=== PATIENT | female | born 1960 | race Caucasian/White ===

== ENCOUNTER → 2017-06-30 15:22 | Outpatient (CLI) | payer MEDICAID, SELFPAY ==
--- NOTE | 2017-06-30 15:27 | MRI_ITS ---
STUDY: MRI LEFT SHOULDER REASON FOR EXAM: Female, 57 years old. Left shoulder pain. Limited range of motion TECHNIQUE: Standardized fat and water weighted pulse sequences were obtained in all 3 orthogonal planes. COMPARISON: X-ray December 22, 2016 FINDINGS: There is supraspinatus tendinosis with tendon thickening, but without a demonstrated tendon tear. Normal infraspinatus tendon. Normal subscapularis tendon. Normal teres minor tendon. Normal supraspinatus muscle. Normal infraspinatus muscle. Normal subscapularis muscle. Normal teres minor muscle. Normal glenohumeral articulation. Normal humeral head and visualized proximal humerus. Normal biceps labral complex. Normal intracapsular long biceps tendon. Normal labrum. Normal capsulo- ligamentous complex. Normal rotator interval. 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 There is a Type II morphology (curved) acromion, with a neutral orientation. There is no subacromial-subdeltoid bursal fluid. Normal visualized coracohumeral and coracoacromial ligaments. Normal quadrilateral space. Normal axillary space. Normal deltoid muscle. Normal trapezius muscle. MRI/Upper Ext Joint Only(Routine) IMPRESSION: No rotator cuff tear. Acromioclavicular spurring with impingement. Electronically Signed: Prakash Galdamez MD at 20:30 EDT , Service support ,
== END ==
PROVIDERS: Family Provider Internal Medicine; PCP Internal Medicine
DX: M25.512 Pain in left shoulder (principal); M19.90 Unspecified osteoarthritis, unspecified site
CPT/HCPCS: 73221

== ENCOUNTER 2017-07-13 16:00 | Outpatient (RCR) | payer MEDICAID, SELFPAY ==
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
--- NOTE | 2017-09-16 15:41 | HP.PTDCNRP_ITS ---
HP - Discharge Summary (1) - Patient Information PAMELA RAMÍREZ was seen in my office for initial evaluation on 03/31/17. The following Plan of Care was established for this patient: Initial Frequency: 2x /Week Initial Duration: 4 Weeks - Anticipated Interventions Patient/Client Instruction: Educate patient on: Condition, Plan of Care For the Purpose of:: To decrease pain, To increase ROM, To improve ability to perform ADL's, To increase tolerance to activity/condition/position, To improve performance and independence with ADL's, To improve ability of physical actions for home/community/work/leisure, To improve gait and locomotor functions, To improve health of tissue, To decrease soft tissue restriction, To increase flexibility/ROM, To assume or resume ADL's, To improve ability to perform tasks related to life management, To improve tolerance to ADL's Therapeutic Exercise to Include: Strength training, Body mechanics, Postural training, Gait and locomotor training, In an aquatic setting, Dynamic Lumbar Stabilization For the Purpose of:: To decrease pain, To increase ROM, To improve muscle performance and motor function, To improve ability to perform ADL's, To increase tolerance to activity/condition/position, To improve performance and independence with ADL's, To improve ability of physical actions for home/ community/work/leisure, To improve health of tissue, To decrease soft tissue restriction, To increase flexibility/ROM, To assume or resume ADL's, To improve health and function, To improve ability to perform tasks related to life management, To improve tolerance to ADL's This patient was last seen in our office 07/29/17. Pertinent comments regarding their Physical therapy will appear below: Patient seen for PT for shoulder pain ,cervical and lumbar radiculopathy fot 14 visits with aquatic PT for lumbar/cervical ROM ,strengthening as well as land program cervical/lumbar. Patiento have MRI thus is d/c . At this point I will be discontinuing this patient from physical therapy. I would be happy to see this patient again in the future if found appropriate by the physician. Thank you! Will Archibald, PT,
== END 2017-07-13 19:00 | disposition home or self-care (01) ==
LOC: PT 16:00
PROVIDERS: Family Provider Internal Medicine; PCP Internal Medicine; Visit Provider Anesthesiology Pain Medicine
DX: M25.512 Pain in left shoulder (principal); M15.9 Polyosteoarthritis, unspecified; M46.92 Unspecified inflammatory spondylopathy, cervical region; M50.30 Other cervical disc degeneration, unspecified cervical region; M54.16 Radiculopathy, lumbar region; M51.36 Other intervertebral disc degeneration, lumbar region; G89.4 Chronic pain syndrome
CPT/HCPCS: 97110; 97113; 97162; 97530

== ENCOUNTER → 2017-10-03 16:19 | Outpatient (CLI) | payer MEDICAID, SELFPAY | PROVIDERS: Family Provider Internal Medicine; PCP Internal Medicine; Visit Provider Nurse Practitioner Family | DX: Z12.31 Encounter for screening mammogram for malignant neoplasm of breast (principal) | CPT/HCPCS: 77063; 77067 ==

== ENCOUNTER → 2017-10-24 13:02 | Outpatient (CLI) | payer MEDICAID, SELFPAY ==
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
== END ==
PROVIDERS: Family Provider Internal Medicine; PCP Internal Medicine
DX: M54.2 Cervicalgia (principal); M54.16 Radiculopathy, lumbar region; M25.511 Pain in right shoulder
CPT/HCPCS: 72050; 72110; 73030

== ENCOUNTER → 2017-11-23 08:59 | Outpatient (CLI) | payer MEDICAID, SELFPAY ==
[2017-11-23 10:32] LABS: Absolute Lymphocyte Count 2.77 X10^3/ul (0.83-4.51); Absolute Neutrophil Count 4.3 X10^3/uL (2.0-7.7); Basophil# 0.03 X10^3/uL; Basophil% 0.4 % (0-1); Eosinophils% 1.3 % (0-5); Hematocrit 43.3 % (37-47); Hemoglobin 14.6 g/dl (12.0-15.0); Lymphocyte # 2.77 X10^3/ul (4.0); Lymphocyte % 36.5 % (19-41); Mean Corp Hgb Conc 33.7 g/gl (32-36); Mean Corpuscular Hgb 31.3 pg (27.0-32.0); Mean Corpuscular Volume 92.7 fL (81-99); Mean Platelet Vol. 12.2 fl (6.2-12.0); Monocyte# 0.37 X10^3/uL; Monocyte% 4.9 % (0-10); Neutrophil # 4.31 X10^3/uL (2.7-7.7); Neutrophil % 56.8 % (47-70); Platelet Count 187 K/mm3 (150-450); RBC Distribution Width CV 13.2 % (11.6-14.6); RBC Distribution Width SD 43.9 fl (35.1-43.9); Red Blood Count 4.67 M/mm3 (4.2-5.4); White Blood Count 7.6 K/mm3 (4.4-11.0)
[2017-11-23 10:40] LABS: POSITIVE COUNT NO; POSITIVE DIFFERENTIAL NO; POSITIVE MORPHOLOGY NO
[2017-11-23 10:50] LABS: ALB/GLOB Ratio 0.8 RATIO (0.9-2.4); AST(SGOT) 14 U/L (15-37); Alanine Aminotransfer ALT/SGPT 26 U/L (13-56); Albumin, Serum 3.2 g/dL (3.2-5.0); Alkaline Phosphatase 71 U/L (45-117); Anion Gap 9 (5-15); BUN 16 mg/dL (7-18); BUN/Creat Ratio 25.5 RATIO (10-20); Calcium,Total 8.4 mg/dL (8.5-10.1); Chloride 106 mmol/L (98-107); Cholesterol 161 mg/dL (200); Creatinine, Serum 0.63 mg/dL (0.55-1.02); EST Glomerular Filtration Rate 104 mL/min (>60); Est Glom Filt Rate - Afr Amer 126 mL/min (>60); Globulin 4.1 g/dL (2.2-4.2); Glucose 101 mg/dL (74-106); High Density Lipoprotein 50 mg/dL; Potassium 3.7 mmol/L (3.5-5.1); Protein, Total 7.3 g/dL (6.4-8.2); Sodium Level 140 mmol/L (136-145); Thyroid Stim Hormone (TSH) 2.86 uIU/mL (0.358-3.74); Triglycerides 72 mg/dL; Very Low Density Lipoprotein 14 mg/dL (5-40)
== END ==
PROVIDERS: Family Provider Internal Medicine; PCP Internal Medicine; Referring Provider Nurse Practitioner Family; Visit Provider Nurse Practitioner Family
DX: I10 Essential (primary) hypertension (principal); E66.9 Obesity, unspecified
CPT/HCPCS: 36415; 80053; 80061; 84443; 85025

== ENCOUNTER → 2017-12-26 15:58 | Outpatient (CLI) | payer MEDICAID, SELFPAY ==
--- NOTE | 2017-12-26 16:15 | MRI_ITS ---
STUDY: MRI LUMBAR SPINE WITHOUT CONTRAST REASON FOR EXAM: Female, 57 years old. Low back pain radiating to left leg TECHNIQUE: Standardized fat and water weighted pulse sequences were obtained in the sagittal and axial planes. COMPARISON: September 01, 2016 FINDINGS: T12-L1: Normal endplates. Normal disc height, hydration and morphology. Normal bilateral facet joints. Normal central canal and bilateral lateral recesses. Normal bilateral intervertebral neural foramina. Normal lumbar lordosis. There is no substantial scoliosis. Normal conus medullaris that terminates at T12-L1 L1-2: Normal endplates. Normal disc height, desiccation and minimal annular bulge.. Normal bilateral facet joints. Normal central canal and bilateral lateral recesses. Normal bilateral intervertebral neural foramina. L2-3: Normal endplates. Normal disc height, desiccation and minimal annular bulge.. Normal bilateral facet joints. Normal central canal and bilateral lateral recesses. Normal bilateral intervertebral neural foramina. L3-4: Normal endplates. Normal disc height, desiccation and small broad-based central disc protrusion.. Bilateral facet arthropathy.. Normal central canal and bilateral lateral recesses. Normal bilateral intervertebral neural foramina. L4-5: Normal endplates. Normal disc height, hydration and minimal annular bulge. Bilateral facet arthropathy. Normal central canal and bilateral lateral recesses. Mild bilateral neural foraminal encroachment.. L5-S1: Normal endplates. Normal disc height, desiccation and minimal annular bulge with small left paracentral disc protrusion impinging upon the descending S1 nerve root.. Bilateral facet arthropathy. Normal central canal. Mild left lateral recess encroachment. Normal bilateral intervertebral neural foramina. Normal visualized sacral ala. Normal visualized paraspinous soft tissue structures. The disc protrusion at L5-S1 appears to have decreased slightly in size since prior study MRI/Spine Lumbar (Routine) IMPRESSION: Small broad-based central disc protrusion L3-4 without significant spinal stenosis Mild spinal stenosis at L4-5 secondary to minimal annular bulge and facet arthropathy. Small left paracentral disc protrusion at L5-S1 impinging upon the descending left S1 nerve root Electronically Signed: Stef Phelps MD at 19:20 EST , Service support ,
--- NOTE | 2017-12-26 16:15 | MRI_ITS ---
STUDY: MRI CERVICAL SPINE WITHOUT CONTRAST REASON FOR EXAM: Female, 57 years old. Neck pain radiating to both arms TECHNIQUE: Standardized fat and water weighted pulse sequences were obtained in the sagittal and axial planes. COMPARISON: None FINDINGS: Normal foramen magnum and brainstem-cervical cord junction. Normal craniovertebral junction. Normal anterior atlantoaxial articulation. Normal odontoid process. Normal cervical lordosis. Normal vertebral bodies and posterior osseous elements. C2-3: Normal endplates. Normal disc height, signal and morphology. Normal central canal and intervertebral neural foramina. C3-4: Normal endplates. Normal disc height, signal and morphology. Normal central canal and intervertebral neural foramina. C4-5: Normal endplates. Normal disc height, signal and minor bulging disc/osteophyte complex.. Normal central canal. Mild bilateral neural foraminal encroachment secondary to bony hypertrophy C5-6: Normal endplates. Normal disc height, signal and tiny central disc protrusion.. Normal central canal and intervertebral neural foramina. C6-7: Normal endplates. Normal disc height, signal and tiny central disc protrusion. Normal central canal and intervertebral neural foramina. C7-T1: Normal endplates. Normal disc height, signal and morphology. Normal central canal and intervertebral neural foramina. Normal cervical cord. Normal visualized soft tissue structures. MRI/Spine Cervical (Routine) IMPRESSION: Mild spinal stenosis at C4-5 secondary to mild bulging disc osteophyte complex Tiny central disc protrusion at C5-6 and C6-7 without spinal stenosis Electronically Signed: Stef Phelps MD at 18:54 EST , Service support ,
== END ==
PROVIDERS: Family Provider Internal Medicine; PCP Internal Medicine; Referring Provider Anesthesiology Pain Medicine; Visit Provider Anesthesiology Pain Medicine
DX: M54.2 Cervicalgia (principal); M54.9 Dorsalgia, unspecified
CPT/HCPCS: 72141; 72148

== ENCOUNTER 2018-02-03 21:36 | Emergency (ER) | payer MEDICAID, SELFPAY ==
[2018-02-03 21:37] VITALS: BP 135/105; PULSE 116; RESP 18; TEMP 36.3; O2SAT 98; BMI 40.7
--- NOTE | 2018-02-03 22:00 | ED.VISSUMM ---
- ER Visit Summary Date of Service: 02/03/18 Chief Complaint: Dental pain History of Present Illness: The patient is a 57 F who had all of her teeth extracted in mid December. She went back to the dentist on the and had some bone fragments pulled. Patient now states it feels that her gums are getting more swollen and getting infected. She tried to call her dentist multiple times a day but never received a return call. Patient is on Butrans chronically from pain management. She has an allergy to penicillin. Physical Examination: Vital signs significant for heart rate 116, otherwise unremarkable. Patient sitting upright in bed. She is alert and talkative. She is nontoxic appearing. Head neck examination was TMs to be clear bilaterally. No facial edema or erythema is noted. Intraoral examination reveals gums to be swollen diffusely with areas of fibrous tissue scattered. Posterior pharynx exam is normal. There is no sign of Fish's. Heart is regular rate and rhythm. Lung sounds are clear. Test Results: [] Emergency Department Course and Treatment: I did explain to the patient that with her being on Butrans her pain receptors a block with this medication and giving her additional opiates is not going to be beneficial. We will treat her with clindamycin to help control infection which should help control her pain. First dose will be given tonight. Treatment Plan: [] Disposition: Discharge Impression: Odontalgia This note was generated with [employer] dictation software. It may contain incorrect words, spelling, and punctuation that were not noted in review of the chart prior to signing ED Disposition - Plan for ED Patient: Chief Complaint: Dental Referrals: Soheila Cassidy MD [Primary Care Provider] -
--- NOTE | 2018-02-03 22:02 | ED.DEP ---
ED Disposition - Plan for ED Patient: Disposition: Home or Assisted Living Chief Complaint: Dental Instructions: ED Abscess Dental Prescriptions: Clindamycin [Cleocin] 300 mg PO 4X/DAY #80 capsule Referrals: Soheila Cassidy MD [Primary Care Provider] - Additional Instructions: Follow-up with your dentist on Tuesday.
[2018-02-03] MEDS: Clindamycin HCl 150 MG Capsule 300 MG PO (23:04)
[2018-02-03 23:13] VITALS: PULSE 110; RESP 16; O2SAT 97
== END 2018-02-03 23:14 | disposition home or self-care (01) ==
LOC: ED 22:35
PROVIDERS: Emergency Provider Emergency Medicine; Family Provider Internal Medicine; PCP Internal Medicine
DX: K08.89 Other specified disorders of teeth and supporting structures (principal); Z88.0 Allergy status to penicillin; Z98.818 Other dental procedure status; I10 Essential (primary) hypertension; Z72.0 Tobacco use
CPT/HCPCS: 99282

== ENCOUNTER → 2018-06-13 11:50 | Outpatient (CLI) | payer MEDICAID, SELFPAY ==
[2018-06-09 13:01] VITALS: BMI 42.4
--- NOTE | 2018-06-13 11:53 | EKG12_ITS ---
Test Reason : ROUTINE Blood Pressure : / mmHG Vent. Rate : 078 BPM Atrial Rate : 078 BPM P-R Int : 152 ms QRS Dur : 082 ms QT Int : 402 ms P-R-T Axes : 059 012 009 degrees QTc Int : 458 ms Normal sinus rhythm Normal ECG Confirmed by MIO HUFFMAN, YOSI ([id number]), editor farm journal JENNIFER DOYLE ([id number]) on 06/15/2018 9:01:16 AM Referred By: Jarek Soriano Confirmed By:YOSI LIEBERMAN MD
== END ==
PROVIDERS: Family Provider Internal Medicine; PCP Internal Medicine; Referring Provider Nurse Practitioner Family; Visit Provider Nurse Practitioner Family
DX: R07.9 Chest pain, unspecified (principal)
CPT/HCPCS: 93005

== ENCOUNTER → 2018-06-27 12:46 | Outpatient (CLI) | payer MEDICAID, SELFPAY ==
[2018-06-27 12:41] VITALS: BMI 42.4
--- NOTE | 2018-06-27 12:48 | RAD_ITS ---
STUDY: X-RAY - LUMBAR SPINE REASON FOR EXAM: Female, 58 years old. Low back pain TECHNIQUE: 4 view(s) of the lumbar spine were obtained. COMPARISON: 10/24/2017 FINDINGS: Normal lumbar lordosis. There is no substantial scoliosis. There is a normal alignment of the vertebrae. Normal vertebral bodies and endplates. There is multi-level degenerative disc disease with multi-level disc space narrowing. There is no demonstrated fracture. No evidence of instability on the flexion or extension views The soft tissue structures are unremarkable. RAD/L/S Spine Min 4 Views IMPRESSION: Mild degenerative changes, no acute findings Electronically Signed: Dillon Fletcher MD at 14:59 EDT , Service support ,
== END ==
PROVIDERS: Family Provider Internal Medicine; PCP Internal Medicine; Referring Provider Orthopaedic Surgery; Visit Provider Orthopaedic Surgery
DX: M54.5 Low back pain (principal)
CPT/HCPCS: 72110

== ENCOUNTER → 2018-10-05 14:33 | Outpatient (CLI) | payer MEDICAID, SELFPAY ==
[2018-07-14 13:05] VITALS: BMI 42.4
--- NOTE | 2018-10-05 14:37 | BI_ITS ---
MAMMOGRAPHY - BILATERAL SCREENING 3-D TOMOSYNTHESIS REASON FOR EXAM: Female, 58 years old. Bilateral Screening 3-D tomosynthesis PERTINENT HISTORY: No significant family history. TECHNIQUE: 2-D mammograms and 3-D Tomosynthesis of the breast (s) were performed. CAD was performed. COMPARISON: 10/03/2017 FINDINGS: The breast composition is composed of scattered fibroglandular density. Unremarkable bilateral breast parenchyma. No dense spiculated masses or suspicious microcalcifications are identified. No architectural distortion is identified. There is no skin thickening or retraction. There has been no significant change since the prior study. BI/SCREEN MAMM (CAD) W/MAGDALENA BILAT IMPRESSION: No mammographic signs of malignancy. Routine yearly mammograms recommended. ASSESSMENT CATEGORY: BIRADS Category 1: Negative. A letter regarding these results will be sent to the patient by the facility within 30 days. FOLLOW UP RECOMMENDATION: Yearly follow up mammogram recommended. (A) Approximately 10% of breast cancers are not detected by mammography. A normal mammogram should not delay biopsy of a clinically suspicious abnormality. Electronically Signed: Vincent Mckeon MD at 16:29 EDT Tel [phone], Service support ,
== END ==
PROVIDERS: Family Provider Internal Medicine; PCP Internal Medicine; Referring Provider Nurse Practitioner Family; Visit Provider Nurse Practitioner Family
DX: Z12.31 Encounter for screening mammogram for malignant neoplasm of breast (principal)
CPT/HCPCS: 77063; 77067

== ENCOUNTER → 2018-11-24 10:51 | Outpatient (CLI) | payer MEDICAID, SELFPAY ==
[2018-11-17 14:00] VITALS: BMI 42.4
[2018-11-24 12:40] LABS: Hematocrit 43.3 % (37-47); Hemoglobin 14.3 g/dL (12.0-15.0); Mean Corpuscular Hgb 30.2 pg (27.0-32.0); Mean Corpuscular Volume 91.5 fL (81-99); Mean Platelet Vol. 11.9 fl (6.2-12.0); Platelet Count 199 K/mm3 (150-450); RBC Distribution Width CV 13.1 % (11.6-14.6); RBC Distribution Width SD 44.7 fl (35.1-43.9); Red Blood Count 4.73 M/mm3 (4.2-5.4); White Blood Count 6.4 K/mm3 (4.4-11.0)
[2018-11-24 13:06] LABS: ALB/GLOB Ratio 0.9 RATIO (0.9-2.4); AST(SGOT) 15 U/L (15-37); Alanine Aminotransfer ALT/SGPT 27 U/L (13-56); Albumin, Serum 3.4 g/dL (3.2-5.0); Alkaline Phosphatase 76 U/L (45-117); Anion Gap 8 (5-15); BUN 16 mg/dL (7-18); BUN/Creat Ratio 28.1 RATIO (10-20); Calcium,Total 8.4 mg/dL (8.5-10.1); Chloride 111 mmol/L (98-107); Cholesterol 167 mg/dL (200); Creatinine, Serum 0.57 mg/dL (0.55-1.02); EST Glomerular Filtration Rate 116 mL/min (>60); Est Glom Filt Rate - Afr Amer 141 mL/min (>60); Globulin 3.8 g/dL (2.2-4.2); Glucose 106 mg/dL (74-106); High Density Lipoprotein 44 mg/dL; Potassium 3.9 mmol/L (3.5-5.1); Protein, Total 7.2 g/dL (6.4-8.2); Sodium Level 145 mmol/L (136-145); Thyroid Stim Hormone (TSH) 2.04 uIU/mL (0.358-3.74); Triglycerides 86 mg/dL; Very Low Density Lipoprotein 17 mg/dL (5-40)
== END ==
PROVIDERS: Family Provider Internal Medicine; PCP Internal Medicine; Visit Provider Nurse Practitioner Family
DX: I10 Essential (primary) hypertension (principal); F32.9 Major depressive disorder, single episode, unspecified; E66.9 Obesity, unspecified
CPT/HCPCS: 36415; 80053; 80061; 84443; 85027

== ENCOUNTER 2019-02-04 21:25 | Emergency (ER) | payer MEDICAID, SELFPAY ==
[2019-01-17 10:42] VITALS: BMI 42.4
[2019-02-04 21:26] VITALS: BP 179/109; PULSE 95; RESP 15; TEMP 36.9; O2SAT 99; BMI 44.5
[2019-02-04 21:45] VITALS: BP 160/83
--- NOTE | 2019-02-04 22:43 | ED.DCSUM_ITS ---
History of Present Illness Chief Complaint: Hypertension Informant: Patient Onset: Hours - 5 Context: Gradual Onset Timing: Continuous Quality: burning Location: top of head Current Severity: Moderate Maximum Severity: Moderate Worsened by: nothing Relieved by: nothing Associated Symptoms: malaise. URI sx x 1 week. 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 She is nauseated now. She denies any focal neurologic symptoms or vision changes or confusion or neck stiffness. She started having diarrhea just now upon arrival to the ER, she had one bout of loose watery nonbloody stool. She has had some occasional minor bleeding from her nose when she blows it only. She denies any dyspnea. No history of heart or lung disease. She has been compliant with her blood pressure medication, she checked it at home earlier when she started feeling the burning on top of her head which she has had before with high blood pressure, her blood pressure was in the 170s at home so she took another dose of her pressure medications, losartan and amlodipine. States she does not really feel any better now. Lightheaded when sitting up and standing, better when lying down. No palpitations or near syncope/syncope. - Past Medical History (1) Arthritis Status: Chronic (2) Chronic back pain Status: Chronic (3) Chronic pain in right foot Status: Chronic (4) Degenerative disc disease, cervical Status: Chronic (5) Depression Status: Chronic (6) Hypertension Status: Chronic (7) Obesity Status: Chronic (8) Osteoarthritis involving joint of left upper arm Status: Chronic (9) Tobacco abuse Status: Chronic Past Medical History - Allergies and Home Meds Allergies/Adverse Reactions: Allergies Penicillins Allergy (Verified 02/04/19 21:28) Anaphylaxis Primary Care Physician: Soheila Cassidy MD [Primary Care Provider] - Lives: Spouse/ Significant Other Smoking Status: Current every day smoker Review of Systems General: Reports: Fever, Malaise, Subjective. Denies: Chills, Sweats Eyes: Denies: Visual changes - bilaterally, Diplopia ENT: Reports: Rhinorrhea. Denies: Bilateral ear pain, Sore throat Cardiovascular: Denies: Chest pain, Palpitations Respiratory: Reports: Cough, Sputum - Occasional phlegm, no hemoptysis. Denies: Dyspnea, Dyspnea on exertion, Orthopnea Gastrointestinal: Reports: Nausea, Vomiting, Diarrhea. Denies: Abdominal pain, Melena, Hematochezia Genitourinary: Denies: Dysuria, Hematuria, Frequency Musculoskeletal: Reports: Back pain - Chronic, unchanged. Denies: Swelling, Extremity Pain Skin: Denies: Rash, Wounds Neurological: Reports: Headache. Denies: Weakness, Numbness Physical Exam Vital Signs/Narrative: Vital Signs Temp Pulse Resp BP Pulse Ox 02/04/19 21:45 160/83 H 02/04/19 21:26 98.5 F 95 15 179/109 H 99 Inital Vital Signs reviewed: Yes General: Well nourished, Well developed, Obese, No Acute Distress Head: Normocephalic, Atraumatic Eyes: Perrl, EOMI ENT: Moist mucous membranes, No rhinorrhea, TM's clear, - - Edentulous. Posterior oropharynx is clear and without erythema or tonsillar edema/exudate/asymmetry. No trismus. no sinus tenderness or purulent nasal discharge. Neck: Supple, Nontender, No lymphadenopathy, No JVD Cardiovascular: Regular rate, Regular rhythm, No murmurs Respiratory: No distress, Chest nontender, Wheezing - Occasional inspiratory wheeze, mild, bilateral. Negative for: Rales, Rhonchi Abdomen: Soft, Nontender, Nondistended, Normal bowel sounds Back: Nontender, Normal Inspection Extremities: Nontender, No edema. Negative for: Calf Tenderness Skin: Normal color, No rash, No Trauma Neurological: Alert, Oriented x3, Cranial nerves II-XII grossly intact, Normal Strength, Normal Sensation, Normal Gait Psychological: Normal affect, Normal Mood Diagnostic/Tx/Re-eval Impressions Chest X-Ray 02/04/19 23:10 IMPRESSION: Minor atelectasis or scarring in the left base, nonspecific thickening of the minor fissure. No pulmonary edema, congestive heart failure or confluent pneumonia. Electronically Signed: Candace Lehman MD at 23:25 EST , Service support , Brain CT 02/05/19 00:32 IMPRESSION: Mild chronic sinus disease. There is no acute intracranial pathology. Electronically Signed: Candace Lehman MD at 1:17 EST , Service support , 02/04/19 23:10 Chest PA and Lateral [RAD] Stat 02/05/19 00:32 Brain/Head without Contrast [CT] Stat - Medical Decision Making Patient was initially given clonidine, her pressure did not change very much, staying in the 160s, and she said she did not feel any better. She then started vomiting and stated that her headache felt worse. Therefore I sent her for CT head, and showed no acute abnormalities but findings of chronic sinusitis. No signs of any mastoiditis or anything else acute. It is certainly possible that this is a early acute ethmoid sinusitis given her acute URI illness. This could be resulting in her headaches as well. I gave her Toradol and Reglan and she felt better, so certainly is possible that it could be a vascular headache. I think it would be reasonable to try her on broad-spectrum antibiotics to cover her for the possibility of an acute sinus infection. We discussed at length the fact that she could still have a viral etiology of her cold that may not respond to antibiotics. She was prescribed azithromycin as well as Phenergan to use as needed and advised to follow-up with her doctor. Blood pressure is down to the 150s. I am suspicious that this is not the reason for her headache. ED Disposition - Plan for ED Patient: Disposition: Home or Assisted Living Diagnosis: Viral URI with cough, Vomiting and diarrhea, Cephalgia, Sinusitis, Accelerated hypertension Instructions: HYPERTENSION, Established, Out of Control, SINUSITIS, Abx Tx Prescriptions: proMETHazine tablet [Phenergan] 25 mg PO Q6H PRN PRN #10 tab PRN Reason: Nausea Transmission Status: Pending to [facility] Azithromycin [Zithromax Z-Sadiq] 250 mg PO UD #1 box Transmission Status: Pending to [facility] Referrals: Soheila Cassidy MD [Primary Care Provider] - 1 Week if not improving
[2019-02-04] MEDS: Albuterol 2.5 MG/3 ML VIAL.NEB. INHALATION (22:50)
[2019-02-04 22:52] VITALS: PULSE 98; RESP 18
[2019-02-04] MEDS: cloNIDine HCl 0.1 MG Tablet PO (22:59)
[2019-02-04] MEDS: Ondansetron ODT 4 MG Tablet 8 MG PO (23:00)
--- NOTE | 2019-02-04 23:10 | RAD_ITS ---
STUDY: X-RAY CHEST REASON FOR EXAM: Female, 58 years old. ELEVATED BP. TECHNIQUE: PA and lateral views of the chest. COMPARISON: None. FINDINGS: Left basilar linear changes possible atelectasis versus scarring. Mild thickening of the minor fissure. Normal size heart. Normal mediastinum and lamin. Normal visualized pulmonary arteries. Normal visualized aortic arch and descending thoracic aorta. Age-appropriate thoracic spine. There are degenerative changes of the acromioclavicular joints. There is no demonstrated abnormality of the visualized soft tissue structures of the upper abdomen. RAD/Chest PA and Lateral IMPRESSION: Minor atelectasis or scarring in the left base, nonspecific thickening of the minor fissure. No pulmonary edema, congestive heart failure or confluent pneumonia. Electronically Signed: Candace Lehman MD at 23:25 EST , Service support ,
[2019-02-05 00:04] VITALS: BP 168/86
--- NOTE | 2019-02-05 00:32 | CT_ITS ---
STUDY: CT BRAIN WITHOUT CONTRAST REASON FOR EXAM: Female, 58 years old. HEADACHE WITH ELEVATED BP AND NAUSEA -- HX:DIABETES,HTN RADIATION DOSAGE (If Supplied By Facility): CTDIvol = ( 44.99 ) mGy, DLP = ( 796.11 ) mGycm TECHNIQUE: Transaxial CT imaging of the brain was performed without administration of intravenous contrast material. Individualized dose optimization techniques were used for this CT. COMPARISON: No relevant priors. FINDINGS: Normal soft tissue structures. Normal calvarium. Normal size ventricles and extra-axial spaces for the patient''s age. Normal white matter tracts of the cerebral hemispheres. Normal basal ganglia and thalami. Normal brainstem. Normal cerebellum. There is no intracranial hemorrhage. There are no findings of an acute ischemic infarction. There is mucoperiosteal inflammatory disease of the bilateral maxillary and ethmoid sinuses consistent with mild chronic sinusitis. The bilateral mastoid air cells and ossicles are unopacified. CT/Brain/Head without Contrast IMPRESSION: Mild chronic sinus disease. There is no acute intracranial pathology. Electronically Signed: Candace Lehman MD at 1:17 EST , Service support ,
[2019-02-05] MEDS: Metoclopramide 10 MG/2 ML Vial 5 MG IV (01:01)
[2019-02-05] MEDS: Ketorolac 15 MG/ML Vial IV (01:02)
[2019-02-05 01:09] VITALS: BP 153/72; PULSE 87; RESP 16
[2019-02-05 01:50] VITALS: BP 141/64; PULSE 81; RESP 16
== END 2019-02-05 01:50 | disposition home or self-care (01) ==
PROVIDERS: Emergency Provider Emergency Medicine; Family Provider Internal Medicine; PCP Internal Medicine
DX: J06.9 Acute upper respiratory infection, unspecified (principal); J32.9 Chronic sinusitis, unspecified; I10 Essential (primary) hypertension; E11.9 Type 2 diabetes mellitus without complications; E66.9 Obesity, unspecified; F17.200 Nicotine dependence, unspecified, uncomplicated; F32.9 Major depressive disorder, single episode, unspecified; G89.29 Other chronic pain; M19.90 Unspecified osteoarthritis, unspecified site; Z88.0 Allergy status to penicillin; R11.2 Nausea with vomiting, unspecified; R19.7 Diarrhea, unspecified; R05 Cough
CPT/HCPCS: 70450; 71046; 94640; 96374; 96375; 99283; J7040; A4216

== ENCOUNTER → 2019-02-19 10:54 | Outpatient (CLI) | payer MEDICAID, SELFPAY ==
[2018-11-17 14:00] VITALS: BMI 42.4
[2019-02-06 12:03] VITALS: BMI 44.5
--- NOTE | 2019-02-19 15:41 | STRESSREP ---
Stress Test Report Exercise stress test. 58-year-old lady with a history of chest pain. Medications: Amlodipine, losartan. Stress testing Rest EKG demonstrates normal sinus rhythm with a rate of 83 beats minute normal intervals are noted resting blood pressures 138/70 mmHg. Patient exercised according to regular Chu protocol for total duration of 4 minutes and 30 seconds maximum heart rate attained was 150 bpm which was 91% of maximum active heart rate the maximum workload was 6.4 metabolic equivalents. The patient maintained sinus rhythm throughout the recording. At rest there were no ST or T wave changes noted suggest ischemia peak exercise upsloping ST changes only were noted with no meet the criteria for ischemia. No clinical angina was noted. The resting blood pressure is 138/70 with a peak blood pressure 160/70 mmHg. Conclusion: Exercise stress test with no EKG criteria for ischemia at a low to moderate workload. No clinical angina noted.
== END ==
PROVIDERS: Family Provider Internal Medicine; PCP Internal Medicine; Referring Provider Nurse Practitioner Family; Visit Provider Nurse Practitioner Family
DX: R07.9 Chest pain, unspecified (principal)
CPT/HCPCS: 93017

== ENCOUNTER → 2019-03-05 15:29 | Outpatient (CLI) | payer MEDICAID, SELFPAY ==
[2019-02-06 12:03] VITALS: BMI 44.5
--- NOTE | 2019-03-05 15:40 | RAD_ITS ---
HISTORY: cervical radiculopathy, pain mainly in left shoulder/neck EXAMINATION/TECHNIQUE: XR Spine Cervical 6 Views: COMPARISON: Cervical spine MRI 12/26/2017 FINDINGS: The cervical vertebra show normal height and alignment. No fracture or acute osseous abnormality. No suspicious bony lesion. C4-C5 mild disc space narrowing accompanied by endplate spurring both anteriorly and posteriorly. The posterior elements appear intact. No spondylolisthesis. Neuroforamina are patent. Normal C1-C2 relationship. RAD/Cerv Spine 4 or 5 Views IMPRESSION: 1. Stable findings. C4-C5 degenerative disc disease and spondylosis. 2. Otherwise negative exam. at 0819 Reported and signed by: Reid Gordon MD Electronically Signed: Reid Gordon, at 8:18 EST Tel , Service support ,
== END ==
PROVIDERS: PCP Internal Medicine; Referring Provider Nurse Practitioner Family; Visit Provider Nurse Practitioner Family
DX: M48.9 Spondylopathy, unspecified (principal); M54.12 Radiculopathy, cervical region; M47.812 Spondylosis without myelopathy or radiculopathy, cervical region; M48.02 Spinal stenosis, cervical region
CPT/HCPCS: 72050

== ENCOUNTER → 2019-03-19 16:57 | Outpatient (CLI) | payer MEDICAID, SELFPAY ==
[2019-03-19 14:41] VITALS: BMI 44.5
[2019-03-22 20:51] LABS: HPV APTIMA, High Risk Negative (Negative)
== END ==
PROVIDERS: PCP Internal Medicine; Referring Provider Nurse Practitioner Women's Health; Visit Provider Nurse Practitioner Women's Health
DX: Z12.4 Encounter for screening for malignant neoplasm of cervix (principal)
CPT/HCPCS: 87624; 88175; G0145

== ENCOUNTER → 2019-05-02 13:02 | Outpatient (CLI) | payer MEDICAID, SELFPAY ==
[2019-04-19 09:46] VITALS: BMI 44.5
[2019-05-02 15:54] LABS: Anion Gap 6 (5-15); BUN 24 mg/dL (7-18); BUN/Creat Ratio 37.1 RATIO (10-20); Calcium,Total 9.2 mg/dL (8.5-10.1); Chloride 108 mmol/L (98-107); Creatinine, Serum 0.65 mg/dL (0.55-1.02); EST Glomerular Filtration Rate 100 mL/min (>60); Est Glom Filt Rate - Afr Amer 121 mL/min (>60); Glucose 108 mg/dL (74-106); Potassium 3.8 mmol/L (3.5-5.1); Sodium Level 140 mmol/L (136-145)
== END ==
PROVIDERS: PCP Internal Medicine; Referring Provider Internal Medicine; Visit Provider Internal Medicine
DX: I10 Essential (primary) hypertension (principal)
CPT/HCPCS: 36415; 80048

== ENCOUNTER → 2019-08-31 13:06 | Outpatient (CLI) | payer MEDICAID, SELFPAY ==
[2019-07-20 13:50] VITALS: BMI 44.5
--- NOTE | 2019-08-31 13:12 | RAD_ITS ---
STUDY: X-RAY - LEFT SHOULDER REASON FOR EXAM: Female, 59 years old. SHOULDER PAIN AND UNABLE TO ABDUCT ARM x8 MONTHS, NKI TECHNIQUE: 4 view(s) of the shoulder. COMPARISON: None. FINDINGS: Normal glenohumeral articulation. There is hypertrophic osteoarthrosis of the acromioclavicular joint with inferior osseous spur formation. Normal acromion. Normal humeral head and visualized proximal humerus. The soft tissue structures are unremarkable. There is no demonstrated fracture. Normal visualized pulmonary apex. RAD/Shoulder min 2 Views IMPRESSION: No acute fracture or dislocation. Degenerative changes of the AC joint. Electronically Signed: Yusuf Simmons MD at 17:35 EDT , Service support ,
== END ==
PROVIDERS: PCP Internal Medicine; Referring Provider Nurse Practitioner Family; Visit Provider Nurse Practitioner Family
DX: M25.519 Pain in unspecified shoulder (principal)
CPT/HCPCS: 73030

== ENCOUNTER → 2019-11-12 15:30 | Outpatient (CLI) | payer MEDICAID, SELFPAY ==
[2019-07-20 13:50] VITALS: BMI 44.5
--- NOTE | 2019-11-12 15:40 | BI_ITS ---
MAMMOGRAPHY - BILATERAL SCREENING REASON FOR EXAM: Female, 59 years old. Routine annual screening examination. PERTINENT HISTORY: Non-contributory. TECHNIQUE: Digital bilateral breast magdalena (3D mammographic acquisition) in the CC and MLO projections. 2-D mediolateral oblique (MLO) and craniocaudad (CC) views of both breasts were obtained. CAD: Full Field Digital Mammography with Computer Added Detection was performed. COMPARISON: Comparison is made with prior study dated 10/05/2018 and 10/03/2017. FINDINGS: Breast Composition: The breasts are almost entirely fatty. There are no dominant masses or suspicious calcifications. No other significant abnormalities are identified. There has been no significant change since the prior study. BI/SCREEN MAMM (CAD) W/MAGDALENA BILAT IMPRESSION: Stable bilateral screening mammogram. Yearly follow-up mammogram recommended. (A) ASSESSMENT CATEGORY: BIRADS Category 1: Negative. A letter regarding these results will be sent to the patient by the facility within 30 days. Approximately 10% of breast cancers are not detected by mammography. A normal mammogram should not delay biopsy of a clinically suspicious abnormality. [id number] Electronically Signed: Hiram Rahman, at 8:29 EDT , Service support ,
== END ==
PROVIDERS: PCP Internal Medicine; Referring Provider Internal Medicine; Visit Provider Internal Medicine
DX: Z12.31 Encounter for screening mammogram for malignant neoplasm of breast (principal)
CPT/HCPCS: 77063; 77067

== ENCOUNTER → 2019-12-20 14:59 | Outpatient (CLI) | payer MEDICAID, SELFPAY ==
[2019-12-20 14:35] VITALS: BMI 45.2
[2019-12-20 17:46] LABS: ALB/GLOB Ratio 0.8 RATIO (0.9-2.4); AST(SGOT) 26 U/L (15-37); Alanine Aminotransfer ALT/SGPT 43 U/L (13-56); Albumin, Serum 3.5 g/dL (3.2-5.0); Alkaline Phosphatase 105 U/L (45-117); Anion Gap 6 (5-15); BUN 13 mg/dL (7-18); BUN/Creat Ratio 17.1 RATIO (10-20); Chloride 105 mmol/L (98-107); Cholesterol 164 mg/dL (200); Creatinine, Serum 0.76 mg/dL (0.55-1.02); EST Glomerular Filtration Rate 83 mL/min (>60); Est Glom Filt Rate - Afr Amer 101 mL/min (>60); Globulin 4.5 g/dL (2.2-4.2); Glucose 171 mg/dL (74-106); High Density Lipoprotein 49 mg/dL; Potassium 3.5 mmol/L (3.5-5.1); Sodium Level 140 mmol/L (136-145); Triglycerides 119 mg/dL; Very Low Density Lipoprotein 24 mg/dL (5-40)
== END ==
PROVIDERS: PCP Internal Medicine; Referring Provider Internal Medicine; Visit Provider Internal Medicine
DX: I10 Essential (primary) hypertension (principal); R73.9 Hyperglycemia, unspecified
CPT/HCPCS: 36415; 80053; 80061; 83036

== ENCOUNTER 2020-01-09 13:55 | Outpatient (RCR) | payer MEDICAID, SELFPAY ==
[2019-12-20 14:35] VITALS: BMI 45.2
== END 2020-01-14 23:59 ==
LOC: NS 13:55
PROVIDERS: PCP Internal Medicine; Visit Provider Internal Medicine
DX: Z71.3 Dietary counseling and surveillance (principal); E66.01 Morbid (severe) obesity due to excess calories
CPT/HCPCS: 97802

== ENCOUNTER → 2020-01-09 15:14 | Outpatient (CLI) | payer MEDICAID, SELFPAY ==
[2019-12-20 14:35] VITALS: BMI 45.2
--- NOTE | 2020-01-09 15:17 | EKG12_ITS ---
Test Reason : CP Blood Pressure : / mmHG Vent. Rate : 090 BPM Atrial Rate : 090 BPM P-R Int : 152 ms QRS Dur : 086 ms QT Int : 382 ms P-R-T Axes : 028 003 037 degrees QTc Int : 467 ms Normal sinus rhythm Normal ECG Confirmed by ELIN HUFFMAN, ALDO ([id number]), telegraph editor JENNIFER DOYLE ([id number]) on 01/11/2020 11:22:23 AM Referred By: Soheila Cassidy Confirmed By:ALDO WORTHINGTON MD
== END ==
PROVIDERS: PCP Internal Medicine; Referring Provider Internal Medicine; Visit Provider Internal Medicine
DX: I10 Essential (primary) hypertension (principal)
CPT/HCPCS: 93005; 97802

== ENCOUNTER 2020-01-28 15:11 | Outpatient (RCR) | payer MEDICAID, SELFPAY ==
[2019-12-20 14:35] VITALS: BMI 45.2
== END 2020-02-14 23:59 ==
LOC: NS 15:11
PROVIDERS: PCP Internal Medicine; Visit Provider Internal Medicine
DX: Z71.3 Dietary counseling and surveillance (principal); E66.01 Morbid (severe) obesity due to excess calories
CPT/HCPCS: 97803

== ENCOUNTER 2020-03-11 13:00 | Outpatient (RCR) | payer MEDICAID, SELFPAY ==
[2019-12-20 14:35] VITALS: BMI 45.2
== END 2020-03-16 23:59 ==
LOC: NS 13:00
PROVIDERS: PCP Internal Medicine; Visit Provider Internal Medicine
DX: Z71.3 Dietary counseling and surveillance (principal); E66.01 Morbid (severe) obesity due to excess calories
CPT/HCPCS: 97803

== ENCOUNTER 2020-04-10 11:32 | Outpatient (RCR) | payer MEDICAID, SELFPAY ==
[2019-12-20 14:35] VITALS: BMI 45.2
== END 2020-04-10 23:59 | disposition home or self-care (01) ==
LOC: NS 11:32
PROVIDERS: PCP Internal Medicine; Visit Provider Internal Medicine
DX: Z71.3 Dietary counseling and surveillance (principal); E66.01 Morbid (severe) obesity due to excess calories
CPT/HCPCS: 97803

== ENCOUNTER → 2020-05-08 16:24 | Outpatient (CLI) | payer MEDICAID, SELFPAY ==
[2020-04-22 14:03] VITALS: BMI 46.2
--- NOTE | 2020-05-08 16:26 | RAD_ITS ---
STUDY: X-RAY - CERVICAL SPINE REASON FOR EXAM: Female, 60 years old. neck pain, right side neck and head -- headaches TECHNIQUE: 4 view(s) of the cervical spine were obtained. COMPARISON: None FINDINGS: There are degenerative changes of the anterior atlantoaxial articulation. Normal odontoid process. Normal cervical lordosis. There is multi-level endplate spondylosis. There is multi-level degenerative disc disease with multilevel disc space narrowing. Suboptimally seen C7 vertebral body. The soft tissue structures are unremarkable. There is no demonstrated fracture of the cervical spine. RAD/Cerv Spine 2 or 3 Views IMPRESSION: Multilevel degenerative disease as described. No acute fracture or subluxation. Electronically Signed: Betty Castillo MD at 2:12 EDT , Service support ,
== END ==
PROVIDERS: PCP Internal Medicine; Referring Provider Nurse Practitioner Family; Visit Provider Nurse Practitioner Family
DX: M54.2 Cervicalgia (principal)
CPT/HCPCS: 72040

== ENCOUNTER → 2020-08-26 13:25 | Outpatient (CLI) | payer MEDICAID, SELFPAY ==
[2020-08-26 12:56] VITALS: BMI 45.6
[2020-08-26 15:23] LABS: Absolute Lymphocyte Count 1.83 X10^3/uL (0.83-4.51); Basophil# 0.05 X10^3/uL; Basophil% 0.6 % (0-1); Eosinophil# 0.09 X10^3/uL; Eosinophils% 1.1 % (0-5); Hematocrit 48.4 % (37-47); Hemoglobin 15.9 g/dL (12.0-15.0); Lymphocyte # 1.83 X10^3/ul (0.83-4.51); Mean Corp Hgb Conc 32.9 g/dL (32-36); Mean Corpuscular Hgb 30.4 pg (27.0-32.0); Mean Corpuscular Volume 92.5 fL (81-99); Mean Platelet Vol. 11.5 fl (6.2-12.0); Monocyte# 0.31 X10^3/uL; Monocyte% 3.7 % (0-10); NRBC Flagged by Analyzer 0 % (0-5); Neutrophil # 6.03 X10^3/uL (2.7-7.7); Neutrophil % 72.4 % (47-70); Platelet Count 253 K/mm3 (150-450); RBC Distribution Width CV 12.9 % (11.6-14.6); Red Blood Count 5.23 M/mm3 (4.2-5.4); White Blood Count 8.3 K/mm3 (4.4-11.0)
[2020-08-26 15:47] LABS: ALB/GLOB Ratio 0.9 RATIO (0.9-2.4); AST(SGOT) 19 U/L (15-37); Alanine Aminotransfer ALT/SGPT 35 U/L (13-56); Albumin, Serum 3.7 g/dL (3.2-5.0); Alkaline Phosphatase 113 U/L (45-117); Anion Gap 5 (5-15); BUN 22 mg/dL (7-18); BUN/Creat Ratio 31.4 RATIO (10-20); Calcium,Total 9.1 mg/dL (8.5-10.1); Chloride 107 mmol/L (98-107); EST Glomerular Filtration Rate 91 mL/min (>60); Est Glom Filt Rate - Afr Amer 110 mL/min (>60); Globulin 4.1 g/dL (2.2-4.2); Glucose 157 mg/dL (74-106); Magnesium 2.1 mg/dL (1.6-2.6); Potassium 4.1 mmol/L (3.5-5.1); Protein, Total 7.8 g/dL (6.4-8.2); Sodium Level 139 mmol/L (136-145); Thyroid Stim Hormone (TSH) 1.23 uIU/mL (0.358-3.74)
== END ==
PROVIDERS: PCP Internal Medicine; Referring Provider Nurse Practitioner Family; Visit Provider Nurse Practitioner Family
DX: R25.2 Cramp and spasm (principal); I10 Essential (primary) hypertension; F32.9 Major depressive disorder, single episode, unspecified
CPT/HCPCS: 36415; 80053; 83735; 84443; 85025

== ENCOUNTER → 2020-11-28 07:28 | Outpatient (CLI) | payer MEDICAID, SELFPAY ==
--- NOTE | 2020-11-27 16:49 | BI_ITS ---
MAMMOGRAPHY - BILATERAL SCREENING REASON FOR EXAM: Female, 60 years old. Routine annual screening examination. PERTINENT HISTORY: Non-contributory. TECHNIQUE: Digital bilateral breast magdalena (3D mammographic acquisition) in the CC and MLO projections. 2-D mediolateral oblique (MLO) and craniocaudad (CC) views of both breasts were obtained. CAD: Full Field Digital Mammography with Computer Added Detection was performed. COMPARISON: Comparison is made with prior study dated 11/12/2019 and 10/05/2018. FINDINGS: Breast Composition: The breasts are almost entirely fatty. There are no dominant masses or suspicious calcifications. No other significant abnormalities are identified. There has been no significant change since the prior study. BI/SCRN MAMM (CAD)W/MAGDALENA BILAT IMPRESSION: Stable bilateral screening mammogram. Yearly follow-up mammogram recommended. (A) ASSESSMENT CATEGORY: BIRADS Category 1: Negative. A letter regarding these results will be sent to the patient by the facility within 30 days. Approximately 10% of breast cancers are not detected by mammography. A normal mammogram should not delay biopsy of a clinically suspicious abnormality. [id number] Electronically Signed: Hiram Rahman MD at 8:46 EDT , Service support ,
== END ==
PROVIDERS: PCP Internal Medicine; Referring Provider Physician Assistant; Visit Provider Physician Assistant
DX: Z12.31 Encounter for screening mammogram for malignant neoplasm of breast (principal)
CPT/HCPCS: 77063; 77067

== ENCOUNTER 2021-05-05 16:55 | Outpatient (CLI) | payer MEDICAID, SELFPAY ==
--- NOTE | 2021-05-05 15:15 | EMB_PTH ---
PATIENT: PAMELA RAMÍREZ LOC: [facility] U#:[id number] AGE/SX: 61/F ROOM: RE05/05/[address]: MARISELA Carlos : 1960 BED: DIS: 05/05/2021 SPEC #: [id number] RECD: 05/05/21 16:54 STATUS: MARTHA REVELES #: [id number] REENA: 05/05/21 15:[address]: Beth Rodriguez NP DEPT: SURGICAL PATHOLOGY RECD BY: Tanesha Taylor ENTERED: 05/06/21 09:59 SP TYPE: ENDOM BX/C JUSTYNA DR: Dr. Soheila Cassidy MD Tissues: Endometrium, NOS Procedures: Surgery Specimen Level IV HEADER OPERATION: Endometrial biopsy PRE-OP DIAGNOSIS: PMB TISSUE SUBMITTED: Endometrial biopsy MICROSCOPIC DIAGNOSIS Endometrial biopsy: Simple cystic endometrial hyperplasia without atypia. SJ:radha 05/07/2021 MICROSCOPIC DESCRIPTION Slides are reviewed. GROSS DESCRIPTION Received is one container labeled with the patient's name and not further designated. The specimen consists of multiple fragments of weaver-pink hemorrhagic soft tissue mixed with mucoid tissue that in aggregate measure 2.5 x 1.5 x 0.2 cm. The specimen is totally submitted in one cassette. / SJ:radha 05/06/2021 TC:5 CPT: 17854
== END 2021-05-05 23:59 | disposition home or self-care (01) ==
LOC: LABSPEC 16:56
PROVIDERS: PCP Internal Medicine; Visit Provider Nurse Practitioner Women's Health
DX: N95.0 Postmenopausal bleeding (principal)
CPT/HCPCS: 88305

== ENCOUNTER 2021-05-22 13:05 | Outpatient (CLI) | payer MEDICAID, SELFPAY ==
--- NOTE | 2021-05-22 13:07 | US_ITS ---
STUDY: ULTRASOUND OF THE FEMALE PELVIS - COMPLETE CLINICAL: Female, 61 years old. abnormal uterine bleeding -- POST JUSTICE BLEEDING TECHNIQUE: Transabdominal and Transvaginal, the latter utilized as the pelvic structures were obscured by bowel gas on transabdominal imaging TECHNICAL QUALITY: Adequate. COMPARISON: None. FINDINGS: The uterus is retroverted and is in a midline position. The uterus measures 5.62 x 2.91 x 3.99 cm. Normal uterine cervix. The endometrium measures 6.2 mm in thickness, and is hyperechoic. There is no demonstrated endometrial mass. A heterogeneous, incompletely defined 1.33 x 1.61 cm structure consistent with a fibroid seen in the posterior upper body of the uterus. There is no demonstrated myometrial mass. I.U.D. - The patient does not have an I.U.D. The right ovary is visualized. The right ovary measures 1.88 x 2.30 x 1.76 cm. This includes a 1.39 x 0.91 x 1.05 cm hypoechoic region that may be one or more follicular cysts. There is no visualized right adnexal mass or complex lesion. There is normal arterial and normal venous vascularity. The left ovary is visualized. The left ovary measures 2.64 x 1.65 x 2.69 cm. There is a moderately well-defined, eccentric 1.08 x 1.19 x 0.6 cm hypoechoic structure consistent with a follicular cyst. There is no visualized left adnexal mass or complex lesion. There is normal arterial and normal venous vascularity. There is no fluid in the cul-de-sac. Polycystic ovary disease: No. US/Transvaginal Non- IMPRESSION: 1. 1.6 cm myometrial fibroid in the posterior upper body of the retroverted uterus. 2. Normal endometrial thickness. 3. Probable follicular cysts in the bilateral ovaries, as noted. Electronically Signed: Dillon Ignacio MD at 10:37 EDT ,
== END 2021-05-22 23:59 | disposition home or self-care (01) ==
LOC: US 13:06
PROVIDERS: PCP Internal Medicine; Referring Provider Nurse Practitioner Women's Health; Visit Provider Nurse Practitioner Women's Health
DX: N95.0 Postmenopausal bleeding (principal)
CPT/HCPCS: 76856; 76830

== ENCOUNTER → 2021-06-03 | Outpatient (CLI) | payer MEDICAID, SELFPAY ==
[2021-06-03 16:42] LABS: Absolute Lymphocyte Count 2.61 X10^3/uL (0.83-4.51); Absolute Neutrophil Count 4.1 X10^3/uL (2.0-7.7); Basophil# 0.07 X10^3/uL; Eosinophil# 0.12 X10^3/uL; Eosinophils% 1.7 % (0-5); Hematocrit 47.1 % (37-47); Hemoglobin 15.6 g/dL (12.0-15.0); Lymphocyte # 2.61 X10^3/ul (0.83-4.51); Lymphocyte % 36.1 % (19-41); Mean Corp Hgb Conc 33.1 g/dL (32-36); Mean Corpuscular Hgb 30.1 pg (27.0-32.0); Mean Corpuscular Volume 90.9 fL (81-99); Mean Platelet Vol. 11.9 fl (6.2-12.0); Monocyte# 0.32 X10^3/uL; Monocyte% 4.4 % (0-10); NRBC Flagged by Analyzer 0 % (0-5); Neutrophil # 4.09 X10^3/uL (2.7-7.7); Neutrophil % 56.5 % (47-70); Platelet Count 223 K/mm3 (150-450); RBC Distribution Width CV 13.2 % (11.6-14.6); RBC Distribution Width SD 44.4 fl (35.1-43.9); Red Blood Count 5.18 M/mm3 (4.2-5.4); White Blood Count 7.2 K/mm3 (4.4-11.0)
[2021-06-03 17:20] LABS: ALB/GLOB Ratio 0.9 RATIO (0.9-2.4); AST(SGOT) 47 U/L (15-37); Alanine Aminotransfer ALT/SGPT 65 U/L (13-56); Albumin, Serum 3.5 g/dL (3.2-5.0); Alkaline Phosphatase 84 U/L (45-117); Anion Gap 6 (5-15); BUN 15 mg/dL (7-18); Chloride 108 mmol/L (98-107); Cholesterol 201 mg/dL (200); Creatinine, Serum 0.56 mg/dL (0.55-1.02); EST Glomerular Filtration Rate 119 mL/min (>60); Est Glom Filt Rate - Afr Amer 144 mL/min (>60); Globulin 4.1 g/dL (2.2-4.2); Glucose 140 mg/dL (74-106); High Density Lipoprotein 44 mg/dL; Magnesium 1.8 mg/dL (1.6-2.6); Potassium 3.8 mmol/L (3.5-5.1); Protein, Total 7.6 g/dL (6.4-8.2); Sodium Level 140 mmol/L (136-145); Thyroid Stim Hormone (TSH) 0.56 uIU/mL (0.358-3.74); Triglycerides 118 mg/dL; Very Low Density Lipoprotein 24 mg/dL (5-40)
== END | disposition home or self-care (01) ==
LOC: BIMLAB 15:07
PROVIDERS: PCP Internal Medicine; Visit Provider Nurse Practitioner Family
DX: M62.838 Other muscle spasm (principal); I10 Essential (primary) hypertension; M54.9 Dorsalgia, unspecified; G89.29 Other chronic pain
CPT/HCPCS: 36415; 80053; 80061; 83735; 84443; 85025

== ENCOUNTER 2021-06-23 12:58 | Day surgery (SDC) | payer MEDICAID, SELFPAY ==
--- NOTE | 2021-06-22 10:13 | PCM.HP.BLA ---
History and Physical Date of Admission: 06/23/21 MR#:[id number]: PAMELA RAMÍREZep #:[id number]:[id number] Provider:Dr. 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 Is patient in pain?: No Allergies Penicillins Allergy (Verified 05/21/21 14:46) Anaphylaxis Medications bupropion HCl 300 mg 24 hr tablet, extended release 300 mg PO QAM 09/07/17 [History Confirmed 05/21/21] promethazine 25 mg PO Q6H PRN PRN #10 tab 02/05/19 [Rx Confirmed 05/21/21] amitriptyline 25 mg tablet 25 mg PO QHS 12/20/19 [History Confirmed 05/21/21] duloxetine 60 mg capsule,delayed release 60 mg PO DAILY 12/20/19 [History Confirmed 05/21/21] trazodone 50 mg tablet 50 mg PO QHS tab 08/26/20 [History Confirmed 05/21/21] amlodipine 10 mg tablet 10 mg PO DAILY #90 tab 03/12/21 [Rx Confirmed 05/21/21] losartan 100 mg tablet 100 mg PO DAILY #90 tab 03/12/21 [Rx Confirmed 05/21/21] meloxicam 7.5 mg tablet 7.5 mg PO DAILY PRN #90 tab 03/12/21 [Rx Confirmed 05/21/21] omeprazole 20 mg tablet,delayed release 20 mg PO DAILY #90 tab 03/12/21 [Rx Confirmed 05/21/21] hydrochlorothiazide 12.5 mg tablet 12.5 mg PO QAM #90 tab 03/16/21 [Rx Confirmed 05/21/21] tizanidine 2 mg tablet 2 mg PO TID PRN #90 tab 05/18/21 [Rx Confirmed 05/21/21] Post menopausal: No Patient : No : No PFSH Medical History Arthritis Chronic back pain Depression Hypertension Leg cramps Leg cramps Pre-diabetes Seasonal allergies Surgical History History of tooth extraction Normal colonoscopy Family History Mother Hypertension High cholesterol Arthritis Grandmother CVA (cerebral vascular accident) Father Hypertension Social History Smoking Status: Former smoker quit date: 02/14/18 quit status: considering quitting alcohol intake: never substance use type: does not use what type of physical activity do you participate in: walking and weight training frequency: 3-4 times per week HPI SURGICAL CONSULT Details: PAMELA RAMÍREZ is a 61 year old who presents for discussion about pathology results. She had an episode of postmenopausal bleeding recently and Beth Rodriguez CNP performed an endometrial biopsy. The results showed simple cystic hyperplasia without atypia. She denies further bleeding. Her ultrasound is scheduled for tomorrow. ROS Const ROS Unobtainable: All systems reviewed & are unremarkable except as noted in H Resp Resp: Reports system reviewed and no additional complaints, except as documented; Denies cough GI GI: Reports as per HPI Psych Psych: Reports system reviewed and no additional complaints, except as documented Exam Const General: cooperative, healthy appearing, comfortable and no acute distress Resp Effort & Inspection: normal respiratory effort Skin General: no rashes or lesions noted Psych Appearance: grossly normal Speech and Movement: speech and movement normal Coding Level of Care Code Off vis,est,level 4 Diagnoses Postmenopausal bleeding N95.0 Endometrial hyperplasia without atypia N85.00 Assessment and Plan Assessment and Plan (1) Postmenopausal bleeding: Status: Acute Comment: EMB, US pending (2) Endometrial hyperplasia without atypia: Status: Acute Plan - Dr. Marija Arias, DO: I have discussed with the patient that simple hyperplasia without atypia means that she has approximately 1% chance of uterine cancer, however the biopsy was only of one small area of the uterus. A complete examination of the endometrial canal is needed to know more. I recommend a hysteroscopy dilation and curettage. After discussing the patient's diagnosis and treatment plan options, patient wishes to proceed with surgical management. I have discussed with the patient the risks, benefits, and alternatives of the procedure which include but are not limited to risks of anesthesia, bleeding, infection, possible damage to bowel, bladder, or surrounding vasculature which could lead to additional surgery to evaluate any complications. Patient agrees to procedure and wishes to proceed. ACOG/uptodate references given for additional information regarding procedure. UPDATE- I have seen the patient and performed any clinically relevant updates to the history and physical exam. Marija Arias, DO
[2021-06-23] VITALS (9 sets, daily range): BP systolic 89–116; BP diastolic 51–99; PULSE 78–103; RESP 16–18; TEMP 35.8–36.7; O2SAT 91–99; BMI 44.6
[2021-06-23] MEDS: Lactated Ringers 1,000 ML 15 ML IV (13:55)
--- NOTE | 2021-06-23 14:32 | PCM.DC ---
Discharge Instructions Diet Discharge Diet: No restrictions Activity Discharge Activity: Return to Normal Activity, May Shower and May Take a Tub Bath (after 1 week) May resume sexual activity in: 1-2 weeks Weight Bearing Status: Weight bearing as tolerated Lifting Restrictions: none Dressing / Incision Call your doctor if you observe: Fever of 101 or Higher, Using more than 1 pad per hour, Shortness of breath and Uncontrolled pain Follow Up Care Please Follow Up With: Marija Arias DO When: Call [phone] to schedule appointment. Test Results: Test results from this visit will be discussed in further detail at your follow-up appointment, if applicable. Discharge Plan Admission Primary Reason for Your Visit: hysteroscopy dilation and curettage Attending Provider: Marija Arias Primary Care Provider: Soheila Cassidy Discharge Orders/Prescriptions Prescriptions: New ibuprofen 800 mg tablet 800 mg PO Q8H PRN (Reason: pain) 7 Days Qty: 30 RF: 0 oxycodone-acetaminophen [Percocet] 5-325 mg tablet 1 tab PO Q6H PRN (Reason: pain) 3 Days Qty: 10 RF: 0 Continued duloxetine 60 mg capsule,delayed release(DR/EC) 60 mg PO DAILY Qty: 90 RF: 3 bupropion HCl 300 mg tablet extended release 24 hr 300 mg PO QAM Qty: 90 RF: 3 amitriptyline 25 mg tablet 25 mg PO QHS Qty: 90 RF: 3 baclofen 10 mg tablet 10 mg PO TID PRN (Reason: muscle spasms) Qty: 90 RF: 1 fluticasone propionate [Flonase Allergy Relief] 50 mcg/actuation spray,suspension 2 spray intranasal DAILY Qty: 15.8 RF: 1 cetirizine [Zyrtec] 10 mg tablet 10 mg PO DAILY PRN (Reason: allergy symptoms) Qty: 90 RF: 1 diclofenac sodium [Voltaren Arthritis Pain] 1 % gel 4 g topical QDAY PRN (Reason: osteoarthritis pain) Qty: 100 RF: 11 promethazine 25 MG tablet 25 mg PO Q6H PRN PRN (Reason: Nausea) Qty: 10 RF: 0 amlodipine 10 mg tablet 10 mg PO DAILY Qty: 90 RF: 3 losartan 100 mg tablet 100 mg PO DAILY Qty: 90 RF: 1 meloxicam 7.5 mg tablet 7.5 mg PO DAILY PRN (Reason: pain) Qty: 90 RF: 0 omeprazole 20 mg tablet,delayed release (DR/EC) 20 mg PO DAILY Qty: 90 RF: 1 hydrochlorothiazide 12.5 mg tablet 12.5 mg PO QAM Qty: 90 RF: 3 Referrals / Follow Up: Soheila Cassidy MD [Primary Care Provider] - Disposition Disposition (needs filled in before D/C Order can be placed): Home, Self Care
--- NOTE | 2021-06-23 14:50 | EMB_PTH ---
PATIENT: PAMELA RAMÍREZ LOC: [facility] U#:[id number] AGE/SX: 61/F ROOM: RE06/23/[address]: Dr. Marjia Arias DO : 1960 BED: DIS: 06/23/2021 SPEC #: [id number] RECD: 06/24/21 08:10 STATUS: MARTHA ARROYOAlberta #: [id number] REENA: 06/23/21 14:[address]: Marija Arias DEPT: SURGICAL PATHOLOGY RECD BY: Tanesha Taylor ENTERED: 06/24/21 09:56 SP TYPE: ENDOM BX/C JORGEHR DR: Dr. Soheila Cassidy MD Tissues: Endometrium, NOS Procedures: Surgery Specimen Level IV HEADER OPERATION: Hysteroscopy, dilation and curettage PRE-OP DIAGNOSIS: Postmenopausal bleeding, endometrial hyperplasia without atypia TISSUE SUBMITTED: Endometrial curettings MICROSCOPIC DIAGNOSIS Endometrial curettings: Polypoid fragments of endometrial tissue, consistent with endometrial polyp with simple cystic endometrial hyperplasia without atypia. Fragments of benign endometrial tissue, blood and mucous. DANILO:radha 06/25/2021 COMMENT Please make reference to previous specimen ([id number]) endometrial biopsy with diagnosis of ?simple cystic endometrial hyperplasia without atypia.? Case has been reviewed in consultation with Dr. Lizama who concurs with the above diagnosis. IDC:AM MICROSCOPIC DESCRIPTION Slides are reviewed. GROSS DESCRIPTION Received in fixative is one container labeled with the patient's name and designated endometrial curettings. The specimen consists of multiple fragments of hemorrhagic soft tissue that in aggregate measure 2 x 2 x 0.1 cm. A fragment of weaver polyp is also noted measuring 1.5 x 0.7 x 0.2 cm. The specimen is totally submitted in one cassette. / DANILO:radha 06/24/2021 TC:5 CPT: 36789
--- NOTE | 2021-06-23 15:04 | OP.PCM_ITS ---
Report of Operation Date of Procedure: 06/23/21 Pre-Operative Diagnosis: Endometrial hyperplasia Post-Operative Diagnosis: endometrial hyperplasia Surgery/Procedure Performed:: hysteroscopy Dilation and curettage, polypectomy Description of Surgical Findings:: intrauterine polyp identified during hysteroscopy,. Surgeon: Marija Arias septic tank installer: None Type of Anesthesia: MAC and Topical Anesth Anesthesiologist: Deep Gill Estimated Blood Loss (mL): 20cc Description of Procedure: Patient was prepped and draped in a normal sterile fashion under MAC anesthesia. A weighted speculum was placed in the vagina and the anterior lip of the cervix was grasped with a single-tooth tenaculum. A paracervical block was placed with 1% lidocaine. Cervix was progressively dilated to allow passage of a 5 mm hysteroscope. The lining was fully visualized and noted to have a moderate sized uterine polyp within the uterine cavity . Uterine sounded to 12 cm. A polypectomy and Curettage was performed and specimen was sent to pathology. All instruments were removed from the vagina and excellent hemostasis was noted. Patient was awoken and taken to recovery in stable condition. Complications none Admit VTE Documentation VTE Present on Admission: Yes VTE Mechan Device Prophylaxis: SCD's VTE Pharm Prophylaxis ordered?: No Reason prophylaxis not ordered:: Treatment Not Indicated Multi Select Codes Urinary/Genital Urinary/Genital CPT Codes: 83688 Hysteroscopy,EMC, Polypectomy
--- NOTE | 2021-06-23 15:22 | EKG12_ITS ---
Test Reason : POST OP BIGEMINY Blood Pressure : / mmHG Vent. Rate : 088 BPM Atrial Rate : 088 BPM P-R Int : 158 ms QRS Dur : 086 ms QT Int : 378 ms P-R-T Axes : 009 -08 -01 degrees QTc Int : 457 ms Normal sinus rhythm Nonspecific T wave abnormality Abnormal ECG Confirmed by MIO HUFFMAN, YOSI ([id number]), editor producer JENNIFER DOYLE ([id number]) on 06/25/2021 8:46:52 AM Referred By: LUIZA Confirmed By:YOSI LIEBERMAN MD
[2021-06-23 16:23] LABS: Anion Gap 6 (5-15); BUN 21 mg/dL (7-18); BUN/Creat Ratio 31.9 RATIO (10-20); Calcium,Total 8.9 mg/dL (8.5-10.1); Chloride 104 mmol/L (98-107); Creatinine, Serum 0.66 mg/dL (0.55-1.02); EST Glomerular Filtration Rate 98 mL/min (>60); Est Glom Filt Rate - Afr Amer 118 mL/min (>60); Estimated Creatinine Clearance 89.25 ml/min; Glucose 154 mg/dL (74-106); Potassium 3.9 mmol/L (3.5-5.1); Sodium Level 139 mmol/L (136-145); Troponin-I HS 4 pg/mL (3.0-54.0)
[2021-06-23] MEDS: HYDROcodone Bitartrate/Apap 5/325 Tablet PO (16:30)
--- NOTE | 2021-06-23 16:54 | SUR.PHASEII ---
DR. LUNDBERG GAVE OKAY FOR PT TO LEAVE AFTER LABS RESULTED AND SHE WAS MADE AWARE OF LABS
== END 2021-06-23 16:50 | disposition home or self-care (01) ==
LOC: SDC 13:00 → AC 13:11
PROVIDERS: Anesthesiology; PCP Internal Medicine; Visit Provider Obstetrics & Gynecology
PROC: 0UDB8ZZ Extraction of Endometrium, Via Natural or Artificial Opening Endoscopic (ICD-10-PCS; CPT 58558; principal; 2021-06-23 14:40)
DX: N95.0 Postmenopausal bleeding (principal); N85.00 Endometrial hyperplasia, unspecified; M54.9 Dorsalgia, unspecified; I10 Essential (primary) hypertension; G89.29 Other chronic pain; Z87.891 Personal history of nicotine dependence
CPT/HCPCS: 58558; 00952; 80048; 84484; 86850; 86900; 86901; 88305; 93005; J7120; J2405

== ENCOUNTER → 2021-12-03 | Outpatient (CLI) | payer MEDICAID, SELFPAY ==
--- NOTE | 2021-12-03 14:42 | BI_ITS ---
MAMMOGRAPHY - BILATERAL SCREENING 3-D TOMOSYNTHESIS REASON FOR EXAM: Female, 61 years old. Routine screening PERTINENT HISTORY: No significant family history. TECHNIQUE: 2-D mammograms and 3-D Tomosynthesis of the breast (s) were performed. CAD was performed. COMPARISON: 11/27/2020 FINDINGS: The breast composition is almost entirely fat. Scattered benign calcifications are seen. No dense spiculated masses or suspicious microcalcifications are identified. No architectural distortion is identified. There is no skin thickening or retraction. There has been no significant change since the prior study. BI/SCRN MAMM (CAD)W/MAGDALENA BILAT IMPRESSION: No mammographic signs of malignancy. Routine yearly mammograms recommended. ASSESSMENT CATEGORY: BIRADS Category 1: Negative. A letter regarding these results will be sent to the patient by the facility within 30 days. FOLLOW UP RECOMMENDATION: Yearly follow up mammogram recommended. (A) Approximately 10% of breast cancers are not detected by mammography. A normal mammogram should not delay biopsy of a clinically suspicious abnormality. Electronically Signed: Dillon Fletcher MD at 15:30 EDT ,
--- NOTE | 2021-12-03 14:42 | US_ITS ---
STUDY: ULTRASOUND TRANSVAGINAL CLINICAL: Female, 61 years old. Postmenopausal bleeding, IUD TECHNIQUE: Transvaginal COMPARISON: None. FINDINGS: Normal uterine size measuring 6.5 cm in maximal craniocaudal dimension. Uterus is retroverted with a small 1 cm fibroid, IUD noted in satisfactory position. Normal endometrial thickness measuring 2.6 mm. There are no endometrial masses, and there is no fluid in the endometrial cavity. Normal uterine cervix. Normal right ovary, measuring 2.4 x 1.8 x 1.6 cm. There are multiple follicles without a dominant cyst. Normal left ovary, measuring 2.5 x 1.4 x 1.7 cm. There are multiple follicles without a dominant cyst. There is no free fluid in the pelvis. US/Transvaginal Non- IMPRESSION: Small uterine fibroid Sonographically normal endometrial thickness for age IUD noted in satisfactory position No suspicious adnexal mass or free fluid Electronically Signed: Dillon Fletcher MD at 16:10 EDT ,
== END | disposition home or self-care (01) ==
PROVIDERS: PCP Internal Medicine; Visit Provider Obstetrics & Gynecology
DX: Z12.31 Encounter for screening mammogram for malignant neoplasm of breast (principal); N95.0 Postmenopausal bleeding
CPT/HCPCS: 76830; 77063; 77067

== ENCOUNTER 2022-02-12 08:27 | Day surgery (SDC) | payer MEDICAID, SELFPAY ==
[2022-02-12 08:47] VITALS: BP 117/71; PULSE 100; RESP 16; TEMP 36.2; O2SAT 99; BMI 43.4
[2022-02-12] MEDS: Lactated Ringers 1,000 ML 15 ML IV (09:06)
--- NOTE | 2022-02-12 09:14 | H&P.OPEN ---
HPI - General HPI Narrative PAMELA RAMÍREZ, is a 61 F who presents for colonoscopy. Her last colonoscopy was 5 years ago and a tubular adenoma was removed. Patient denies any abdominal pain or blood in the stool. No family history of colon cancer. [facility] Medical History Anxiety Arthritis Back pain Chronic back pain Depression Fibromyalgia Former smoker Gastric reflux History of pain when walking History of stress test Hypertension Injury of back Injury of head and neck Leg cramps Leg cramps Migraine headache Muscle spasm Post-menopausal Pre-diabetes Seasonal allergies Wears dentures Wears glasses Home Medications amlodipine 10 mg tablet 10 mg PO DAILY #90 tabs 03/12/21 [Rx Last Taken 02/12/22] hydrochlorothiazide 12.5 mg tablet 12.5 mg PO QAM #90 tabs 03/16/21 [Rx Last Taken Unknown] amitriptyline 25 mg tablet 25 mg PO QHS #90 tabs 06/03/21 [Rx Last Taken Unknown] bupropion HCl 300 mg 24 hr tablet, extended release 300 mg PO QAM #90 tabs 06/03/21 [Rx Last Taken Unknown] cetirizine 10 mg tablet (Zyrtec) 10 mg PO DAILY PRN allergy symptoms #90 tabs 06/03/21 [Rx Last Taken Unknown] diclofenac sodium 1 % topical gel (Voltaren Arthritis Pain) 4 g topical QDAY PRN osteoarthritis pain #100 grams 06/03/21 [Rx Last Taken Unknown] duloxetine 60 mg capsule,delayed release 60 mg PO DAILY #90 caps 06/03/21 [Rx Last Taken Unknown] fluticasone propionate 50 mcg/actuation nasal spray,suspension (Flonase Allergy Relief) 2 spray intranasal DAILY #15.8 grams 06/03/21 [Rx Last Taken Unknown] disability placard #1 ea 07/10/21 [Rx Last Taken Unknown] ibuprofen 600 mg tablet 600 mg PO Q8H PRN pain #30 tabs 09/02/21 [Rx Last Taken Unknown] meloxicam 7.5 mg tablet 7.5 mg PO DAILY PRN pain #90 tabs 11/24/21 [Rx Last Taken Unknown] losartan 100 mg tablet See Rx Instructions .Route .COMPLEX #90 tabs 12/02/21 [Rx Last Taken 02/12/22] omeprazole 20 mg tablet,delayed release 20 mg PO DAILY #90 tabs 01/08/22 [Rx Last Taken 02/12/22] albuterol sulfate 90 mcg/actuation aerosol inhaler (ProAir HFA) 1 - 2 puff inhalation Q6H PRN shortness of breath or wheezing #8.5 grams 01/13/22 [Rx Last Taken Unknown] cyclobenzaprine 5 mg tablet 5 mg PO BID PRN muscle spasm #60 tabs 01/13/22 [Rx Last Taken Unknown] hydroxyzine HCl 25 mg tablet 25 mg PO BID PRN itching #30 tabs 01/13/22 [Rx Last Taken Unknown] Allergy/AdvReac Type Severity Reaction Status Date / Time Penicillins Allergy Anaphylaxis Verified 02/12/22 08:44 Family History Mother Hypertension High cholesterol Arthritis Grandmother CVA (cerebral vascular accident) Father Hypertension Surgical History History of D&C History of tooth extraction Normal colonoscopy Social History Smoking Status: Former smoker quit date: 02/14/18 quit status: considering quitting alcohol intake: never substance use type: does not use what type of physical activity do you participate in: walking and weight training frequency: 3-4 times per week Past Medical/Surgical History Planned Operation Planned Operative Procedure/s: colonoscopy S.O.S: No Previous Hospitalizations/Surgeries HX Hospitalizations: No HX of Surgeries: WISDOM TEETH TEEN Any Problems With Anesthesia: No You/Your Family Experience Fever (Hyperthermia) With Anes: No Cholinesterase deficiency: No Cardiovascular Hx Chest Pain within Last 2 months: No Hx of Irregular Heartbeat and/or Afib: No Hx Heart Attack: No Hx Congestive Heart Failure: No Hx Rheumatic Fever: No Hx Hypertension: Yes Hx Internal Defibrillator: No Hx Pacemaker: No Hx Cardiac Catheterization: No Hx Cardiac Surgery/Stents/Etc.: No Hx Stress Test: No Hx Pain in Legs when Walking/Leg Cramps: Yes Respiratory Chronic Cough: Yes (SMOKER) HX of Shortness of Breath: No Hoarseness: No Hx Chronic Obstructive Pulmonary Disease (COPD): No Hx Asthma: No Hx Emphysema: No Hx Sleep Apnea: No Hx Respiratory Tract Infection/Cold (presently): No Do You Snore Loudly (louder than talking or can be heard): No Do You Often Feel Tired/ Fatigued/ Sleepy Dring Daytime?: No Has Anyone Observed You Stop Breathing During Sleep?: No Result (for STOP score): Negative Hx Smoking: Yes Smoking Status: Former smoker Gastrointestinal Hx Gastroesophageal Reflux: Yes Controlled With Meds: No (NO MEDS) Hx Gastrointestinal Disorders: No Hx Gastrointestinal Bleed: No Hx Ulcer: No Hx Hiatal Hernia: Yes Difficulty Chewing/Swallowing: No Special diet followed at home: No Hx Unplanned Weight Loss of 20#: No HX Unplanned Weight Gain of 20#: No Neurological Hx Seizures: No HX Syncope/Blackout Spells/Unconsciousness: No Hx Transient Ischemic Attacks (TIA): No Hx Multiple Sclerosis: No Hx Parkinson's Disease: No Hx Head/Neck Injury: Yes (NECK PAIN) Hx Headaches: Yes Hx Back Injury/Pain: Yes Recent Onset of Speech Difficulty: No Restless Legs: No (NUMBNESS,TINGLING) Does patient have nerve stimulator: No Blood Disorder Hx Leukemia: No Bleeding Tendencies: No Hx Deep Vein Thrombosis: No Hx High Cholesterol: No Blood Transmitted Disease: No Hx Hepatitis: No Hx Cirrhosis: No Hx Anemia: No Hx Blood Disorders: No Reproduction : No Is Patient Lactating: No Hx Tubal Ligation: No Genitourinary Hx Renal Disease: No Hx Dialysis: No Musculoskeletal Hx Arthritis: Yes (throughout spine) Hx Rheumatoid Arthritis: No Hx Gout: No Recent Onset of an Orthopedic Problem: No Endocrine Hx Diabetes: No (Borderline) Thyroid Disease: No Hx Steroid Therapy: No Psycho/Social Hx Substance Use: No Hx Alcohol Use: No Hx Anxiety: Yes Hx Depression: Yes Mental Illness: No Hx Dementia: No Miscellaneous Hx Cancer: No Recent Exposure to Contagious Disease: No Hx of C-Diff: No Any Loose Teeth: Yes (PARTIAL PLATE) Allergies Penicillins Allergy (Verified 02/12/22 08:44) Anaphylaxis Discharge Is Pt Admitted From a [facility], or a Nursing Home: Yes Who Could Help: boyfriend After D/C, Where Do you Plan to Go: Return Home Vital Signs Vital Signs Vital Signs: 02/12/22 08:47 02/12/22 08:47 Temperature 97.2 F L Temperature Source Temporal Pulse Rate 100 Respiratory Rate 16 Respiratory Pattern Normal Blood Pressure 117/71 Blood Pressure Mean 86 Blood Pressure Source Monitor Blood Pressure Position Semi-Fowlers Blood Pressure Location Left Arm Pulse Ox 99 Oxygen Delivery Method Room Air Weight Weight: 277 lb 12.519 oz Body Mass Index (BMI) 43.4 Physical Exam Const alert and oriented x3 HEENT normocephalic Eyes PERRL Resp normal respiratory effort and normal air movement Cardio regular rate and regular rhythm GI soft to palpation, non-tender and non-distended Extremity normal to inspection Assessment & Plan Assessment/Plan (1) History of colon polyps: PLAN: Patient here for surveillance colonoscopy for history of polyps removed 5 years ago. I explained endoscopy in detail to the patient. I explained the risks including but not limited to stroke or heart attack with anesthesia, perforation of the GI tract, bleeding, infection. I explained that any of these could necessitate further emergency surgery. The patient understands and all questions were answered sufficiently. The patient wishes to proceed with procedure. Mathew David MD Pager: [facility] [address] [place] [address] [address] [place] [address] Office: Surgery Risks - Colonoscopy Risks Include but are not Limited To: Risks include but are not limited to: Bleeding, perforation requiring further surgery, inability to complete colonoscopy requiring barium enema.
--- NOTE | 2022-02-12 09:39 | OP.COLON_ITS ---
Patient Name: Phillip Tai Procedure Date: 02/12/2022 9:14 AM Date of : 1960 Age: 61 Procedure: Colonoscopy Indications: High risk colon cancer surveillance: Personal history of colonic polyps Providers: Mathew David MD Referring MD: Mathew David MD Medicines: Monitored Anesthesia Care Patient Profile: This is a 61 year old female. Refer to note in patient chart for documentation of history and physical. Last Colonoscopy: 5 years ago. Complications: No immediate complications. Procedure: Pre-Anesthesia Assessment: - Prior to the procedure, a History and Physical was performed, and patient medications and allergies were reviewed. The patient's tolerance of previous anesthesia was also reviewed. The risks and benefits of the procedure and the sedation options and risks were discussed with the patient. All questions were answered, and informed consent was obtained. Prior Anticoagulants: The patient has taken no previous anticoagulant or antiplatelet agents. After reviewing the risks and benefits, the patient was deemed in satisfactory condition to undergo the procedure. After I obtained informed consent, the scope was passed under direct vision. Throughout the procedure, the patient's blood pressure, pulse, and oxygen saturations were monitored continuously. The colonoscope was introduced through the anus and advanced to the cecum, identified by appendiceal orifice and ileocecal valve. The colonoscopy was performed without difficulty. The patient tolerated the procedure well. The quality of the bowel preparation was good. Scope In: 9:23:44 AM Scope Withdrawal Time 0 hours 5 minutes 48 seconds Scope Out: 9:36:26 AM Total Procedure Duration Time 0 hours 12 minutes 42 seconds Findings: The entire examined colon appeared normal on direct and retroflexion views. Impression: - The entire examined colon is normal on direct and retroflexion views. - No specimens collected. Recommendation: - Discharge patient to home. - Resume previous diet. - Continue present medications. - Await pathology results. - Repeat colonoscopy in 10 years for screening purposes. Procedure Code(s): --- Professional --- 48417, Colonoscopy, flexible; diagnostic, including collection of specimen(s) by brushing or washing, when performed (separate procedure) Diagnosis Code(s): --- Professional --- Z86.010, Personal history of colonic polyps CPT copyright 2017 [employer]. All rights reserved. The codes documented in this report are preliminary and upon yarn hauler review may be revised to meet current compliance requirements. Mathew David MD 02/12/2022 9:38:11 AM This report has been signed electronically. Number of Addenda: 0 Note Initiated On: 02/12/2022 9:14 AM
--- NOTE | 2022-02-12 09:39 | OP.CCLET_ITS ---
02/12/2022 Soheila Cassidy MD [address] [place] [address] [place] [address] Re : Colonoscopy procedure for Phillip Tai Dear Dr. Cassidy This procedure was performed on Saturday, February 12, 2022. My impressions and recommendations are as follows: Impressions : - The entire examined colon is normal on direct and retroflexion views. - No specimens collected. Recommendations : - Discharge patient to home. - Resume previous diet. - Continue present medications. - Await pathology results. - Repeat colonoscopy in 10 years for screening purposes. My findings are described in the full procedure note, which is enclosed. If I can be of further assistance, please feel free to contact me at Doctor phone number(s): , Work: . Sincerely, Mathew David MD 02/12/2022 9:38:11 AM This report has been signed electronically.
[2022-02-12 09:40] VITALS: BP 117/71; BP 95/67; PULSE 93; RESP 16; TEMP 36.5; O2SAT 93
[2022-02-12 09:45] VITALS: BP 117/71; BP 96/47; PULSE 90; RESP 16; O2SAT 96
[2022-02-12 09:50] VITALS: BP 111/62; BP 117/71; PULSE 92; RESP 106; O2SAT 96
[2022-02-12 09:55] VITALS: BP 108/62; BP 117/71; PULSE 90; RESP 16; TEMP 36.8; O2SAT 96
[2022-02-12 10:12] VITALS: BP 117/71
== END 2022-02-12 10:20 | disposition home or self-care (01) ==
LOC: EN 08:27 → AC 08:29
PROVIDERS: PCP Internal Medicine; Referring Provider Surgery; Visit Provider Surgery
PROC: 0DJD8ZZ Inspection of Lower Intestinal Tract, Via Natural or Artificial Opening Endoscopic (ICD-10-PCS; CPT 45378; principal; 2022-02-12 09:25)
DX: Z86.010 Personal history of colon polyps (principal); I10 Essential (primary) hypertension; F32.A Depression, unspecified; M50.30 Other cervical disc degeneration, unspecified cervical region; K21.9 Gastro-esophageal reflux disease without esophagitis; Z87.891 Personal history of nicotine dependence; Z79.899 Other long term (current) drug therapy
CPT/HCPCS: 45378; J7120; J2405

== ENCOUNTER → 2022-08-10 | Outpatient (CLI) | payer MEDICAID, SELFPAY ==
[2022-08-10 16:35] LABS: Absolute Lymphocyte Count 2.16 X10^3/uL (0.83-4.51); Absolute Neutrophil Count 7.1 X10^3/uL (2.0-7.7); Basophil# 0.05 X10^3/uL; Basophil% 0.5 % (0-1); Eosinophil# 0.04 X10^3/uL; Eosinophils% 0.4 % (0-5); Hematocrit 47.4 % (37-47); Lymphocyte # 2.16 X10^3/ul (0.83-4.51); Mean Corp Hgb Conc 33.8 g/dL (32-36); Mean Corpuscular Hgb 30.7 pg (27.0-32.0); Mean Corpuscular Volume 90.8 fL (81-99); Mean Platelet Vol. 11.3 fl (6.2-12.0); Monocyte# 0.44 X10^3/uL; Monocyte% 4.5 % (0-10); NRBC Flagged by Analyzer 0 % (0-5); Neutrophil % 72.4 % (47-70); Platelet Count 263 K/mm3 (150-450); RBC Distribution Width CV 12.6 % (11.6-14.6); RBC Distribution Width SD 41.6 fl (35.1-43.9); Red Blood Count 5.22 M/mm3 (4.2-5.4); White Blood Count 9.8 K/mm3 (4.4-11.0)
[2022-08-10 16:58] LABS: Vitamin B12 412 pg/mL (211-911); Vitamin D,25 Hydroxy 26.4 ng/mL
[2022-08-10 16:59] LABS: ALB/GLOB Ratio 0.8 RATIO (0.9-2.4); AST(SGOT) 22 U/L (15-37); Alanine Aminotransfer ALT/SGPT 39 U/L (13-56); Albumin, Serum 3.5 g/dL (3.2-5.0); Alkaline Phosphatase 84 U/L (45-117); Anion Gap 8 (5-15); BUN 18 mg/dL (7-18); BUN/Creat Ratio 25.2 RATIO (10-20); Calcium,Total 9.4 mg/dL (8.5-10.1); Chloride 106 mmol/L (98-107); Cholesterol 188 mg/dL (200); Creatinine, Serum 0.72 mg/dL (0.55-1.02); EST Glomerular Filtration Rate 88 mL/min (>60); Est Glom Filt Rate - Afr Amer 107 mL/min (>60); Globulin 4.4 g/dL (2.2-4.2); Glucose 151 mg/dL (74-106); High Density Lipoprotein 40 mg/dL; Potassium 3.3 mmol/L (3.5-5.1); Protein, Total 7.9 g/dL (6.4-8.2); Sodium Level 137 mmol/L (136-145); Thyroid Stim Hormone (TSH) 0.99 uIU/mL (0.358-3.74); Triglycerides 81 mg/dL; Very Low Density Lipoprotein 16 mg/dL (5-40)
== END | disposition home or self-care (01) ==
LOC: BIMLAB 14:48
PROVIDERS: PCP Internal Medicine; Referring Provider Nurse Practitioner Family; Visit Provider Nurse Practitioner Family
DX: I10 Essential (primary) hypertension (principal); E55.9 Vitamin D deficiency, unspecified
CPT/HCPCS: 36415; 80053; 80061; 82306; 82607; 84443; 85025

== ENCOUNTER → 2022-12-06 | Outpatient (CLI) | payer MEDICAID, SELFPAY ==
--- NOTE | 2022-12-06 13:27 | BI_ITS ---
MAMMOGRAPHY - BILATERAL SCREENING REASON FOR EXAM: Female, 62 years old. Routine annual screening examination. PERTINENT HISTORY: Non-contributory. TECHNIQUE: Digital bilateral breast magdalena (3D mammographic acquisition) in the CC and MLO projections. 2-D mediolateral oblique (MLO) and craniocaudad (CC) views of both breasts were obtained. CAD: Full Field Digital Mammography with Computer Added Detection was performed. COMPARISON: Comparison is made with prior study December 03, 2021 and November 27, 2020. FINDINGS: Breast Composition: The breasts are almost entirely fatty. There are no dominant masses or suspicious calcifications. No other significant abnormalities are identified. There has been no significant change since the prior study. BI/SCRN MAMM (CAD)W/MAGDALENA BILAT IMPRESSION: Stable bilateral screening mammogram. Yearly follow-up mammogram recommended. (A) ASSESSMENT CATEGORY: BIRADS Category 1: Negative. A letter regarding these results will be sent to the patient by the facility within 30 days. Approximately 10% of breast cancers are not detected by mammography. A normal mammogram should not delay biopsy of a clinically suspicious abnormality. [id number] Electronically Signed: Hiram Rahman MD at 14:16 EDT ,
== END | disposition home or self-care (01) ==
LOC: OPBI 13:26
PROVIDERS: PCP Internal Medicine; Referring Provider Internal Medicine; Visit Provider Internal Medicine
DX: Z12.31 Encounter for screening mammogram for malignant neoplasm of breast (principal)
CPT/HCPCS: 77063; 77067

== ENCOUNTER → 2023-02-24 | Outpatient (CLI) | payer MEDICAID, SELFPAY ==
--- NOTE | 2023-02-24 14:20 | US_ITS ---
STUDY: ULTRASOUND OF THE FEMALE PELVIS - COMPLETE REASON FOR EXAM: Female, 62 years old. Endometrial hyperplasia LMP: February 14, 2017 TECHNIQUE: Transabdominal and Transvaginal TECHNICAL QUALITY: Adequate. COMPARISON: Comparison is made with prior study December 03, 2021. FINDINGS: The uterus is retroverted and is in a midline position. The uterus measures 6.1 cm x 3.5 cm x 3 cm. There is a Nabothian cyst of the cervix. The endometrium measures 3.8 mm in thickness, and is heterogeneous (striated). There is no demonstrated endometrial mass. There is a 1.3 cm x 1.2 cm x 1 cm fundal fibroid. Heterogeneous appearance of the myometrium. I.U.D. - The patient does have an I.U.D. The right ovary is visualized. The right ovary measures 2.2 cm x 2.2 cm x 1.6 cm. There is no right ovarian cyst or ovarian mass. There is no visualized right adnexal mass or complex lesion. There is normal arterial and normal venous vascularity. The left ovary is visualized. The left ovary measures 2.5 cm x 2 cm x 1.3 cm. There is no left ovarian cyst or ovarian mass. There is no visualized left adnexal mass or complex lesion. There is normal arterial and normal venous vascularity. There is no fluid in the cul-de-sac. US/Pelvic (Non ) IMPRESSION: IUD is seen within the endometrium. Fundal fibroid. Heterogeneous echotexture of the uterus. Electronically Signed: Hiram Rahman MD at 15:42 EST ,
--- OUTSIDE RECORDS SUMMARY | 2023-02-24 14:41 | XMS RPT_ITS | CCD ---
Author Name Unknown Address [address] [place] [address] Organization [facility] Care Team Providers Care Mental Retardation Aide Name Role Phone CORDELIA GALLARDO () Unavailable Unav ailable MELONY HUIZAR (PT) Unavailable Unavailable CORDELIA GALLARDO () Unavailable Unav ailable Fajellys Marija L Unavailable Unavailable Yuliet, Hardik L Unavailable Unavailable Rik, Jamesetta Unavailable Unavailable Yuliet, Hardik L Unavailable Unavailable Yuliet, Hardik L Unavailable Unavailable Rik, Jamesetta Unavailable Unavailable Oleghe, Efewongbe Unavailable Unavailable Rik, Jamesetta Unavailable Unavailable Oleghe, Efewongbe Unavailable Unavailable Yuliet, Hardik L Unavailable Unavailable Oleghe, Efewongbe Unavailable Unavailable Yuliet, Hardik L Unavailable Unavailable No Family Physician given Unavailable Unasheelai lable PHYSICIAN, NONE Primary Care Physician Unavailab KYLE Brunson DO Attending Unavailable PHYSICIAN, NONE Primary Care Unavailable Allergies Allergy Classification Reported Allergen(s) Allergy Type Date of Onset Reaction(s) Facility (1 source) Penicillins; Translations: [PENICILLINS] Propensity to adverse reactions to drug (disorder) [facility] Repository (1 source) Penicillin; Translations: [penicillin] Drug Allergy [facility] Medications Current Medications Medication Drug Class(es) Dates Sig (Normalized) Sig (Original) acetaminophen 325 mg / HYDROcodone bitartrate 5 mg oral tablet (1 source) Opioid Agonist Start: 01-07-2023 End: 01-10-2023 take 1 tablet by mouth every six hours as needed for pain [place] 325- 5 mg oral tablet Dose = 1 tab(s), Oral, q6h, PRN as needed for pain, X 3 day(s), # 12 tab(s), 0 Refill(s), Back pain, 106.8 Start Date: 01/07/23 Stop Date: 01/10/23 Status: Ordered cyclobenzaprine hydrochloride 10 mg oral tablet (1 source) Muscle Relaxant Start: 01-07-2023 End: 01-12-2023 cyclobenzaprine 10 mg oral tablet Dose : 10 mg = 1 tab(s), Oral, TID, X 5 day(s), # 20 tab(s), 0 Refill(s), 01/12/23 9:09:00 PM EST Start Date: 01/07/23 Stop Date: 01/12/23 Status: Ordered Problems Active Problems Problem Classification Problem Date Documented Da te Episodic/Chronic Spondylosis; intervertebral disc disorders; other back problems (1 source) Backache; Translations: [Dorsalgia, unspecified] Onset: 01-07-2023 Episodic Unclassified (2 sources) Unknown / UNK(Unknown) Onset: 08-20-2016 Past or Other Problems Problem Classification Problem Date Documented Da te Episodic/Chronic Unclassified (1 source) FOLLOW UP Onset: 12-21-2016 Results Test Name Value Interpretation Reference Range Facil ity Vital Signs Date Time Vital Sign Value Performing Clinician Charo asif 01-07-2023 20:37-0500 Blood Pressure Location KYLE Appolicious [facility] 01-07-2023 20:37-0500 Blood Pressure Method KYLE BALDERASLily Attensity O [facility] 01-07-2023 20:37-0500 Diastolic Blood Pressure Non-Invasive 73 mm[Hg] KYLE Appolicious [facility] 01-07-2023 20:37-0500 Heart rate 94 /min KYLE Appolicious [facility] 01-07-2023 20:37-0500 Respiratory rate 16 /min KYLE Appolicious [facility] 01-07-2023 20:37-0500 Systolic Blood Pressure Non-Invasive 128 mm[Hg] KYLE MCCLELLANMELT DO [facility] 01-07-2023 20:31-0500 Blood Pressure Location KYLE FROMMELT DO [facility] 01-07-2023 20:31-0500 Blood Pressure Method KYLE BALDERAST D O [facility] 01-07-2023 20:31-0500 Diastolic Blood Pressure Non-Invasive 101 mm[Hg] KYLE BALDERAST DO [facility] 01-07-2023 20:31-0500 Heart rate 93 /min KYLE BALDERAST DO [facility] 01-07-2023 20:31-0500 Respiratory rate 16 /min KYLE BALDERAST DO [facility] 01-07-2023 20:31-0500 Systolic Blood Pressure Non-Invasive 132 mm[Hg] KYLE BALDERAST DO [facility] 01-07-2023 19:57-0500 Blood Pressure Location KYLE MCCLELLANMELT DO [facility] 01-07-2023 19:57-0500 Blood Pressure Method KYLE BALDERAST D O [facility] 01-07-2023 19:57-0500 Body height 170.2 cm KYLE BALDERAST DO [facility] 01-07-2023 19:57-0500 Body temperature 99.32 [degF] KYLE MCCLELLANMELT DO [facility] 01-07-2023 19:57-0500 Body weight 106.8 kg KYLE MCCLELLANMELT DO [facility] 01-07-2023 19:57-0500 Diastolic Blood Pressure Non-Invasive 103 mm[Hg] KYLE MINOR DO [facility] 01-07-2023 19:57-0500 Heart rate 122 /min KYLE MINOR DO [facility] 01-07-2023 19:57-0500 Respiratory rate 20 /min KYLE MINOR DO [facility] 01-07-2023 19:57-0500 Systolic Blood Pressure Non-Invasive 157 mm[Hg] KYLE MINOR DO [facility] Encounters Encounter Date Encounter Type Care Provider Facility Start: 01-07-2023 End: 01-07-2023 Emergency department patient visit KYLE MINOR DO Facility:B Start: 01-07-2023 End: 01-07-2023 Emergency department patient visit KYLE MINOR DO [facility] Start: 11-01-2017 Patient encounter Hardik murillo:[facility] Start: 08-30-2017 Patient encounter Hardik Piperdaniel Sage cility:[facility] Start: 08-03-2017 Evaluation and management of inpatient Daniel Jolly Facility:[facility] Start: 07-20-2017 Evaluation and management of inpatient Daniel Jolly Facility:[facility] Start: 05-25-2017 Patient encounter Hardik Piperdaniel Sage jessicaty:[facility] Start: 04-13-2017 Patient encounter Hardikce lopezty:[facility] Start: 04-06-2017 Evaluation and management of inpatient Daniel Jolly Facility:[facility] Start: 03-17-2017 Patient encounter Hardik murillo:[facility] Start: 12-21-2016 Patient encounter Marija Santos Facility:[facility] Start: 08-20-2016 End: 08-23-2016 Ambulatory MELONY (PEG) GAYE [facility] Start: 08-09-2016 End: 08-09-2016 Ambulatory CORDELIA GALLARDO [facility] Immunizations Immunization Date Immunization Notes Care Provider Chu murillo 05-26-2020 SARS-CoV-2 (COVID-19 ) [id number] vaccine KYLE MINOR DO [facility] Payers Date Payer Category Payer Unknown [id number] 2016 Unknown [id number] 1960 Unknown [id number] Social History Date Type Detail Facility Tobacco smoking status No Smoking Status Entered [facility] Sex Assigned At Female [facility] Functional Status Date Assessment Result Facility 01-07-2023 Functional Status ID band on, Allergy Band on, Call device within reach, Bed in low position, Wheels locked, Bedside Cart Locked, Visitor at bedside [facility] Mental Status Date Assessment Result Facility 01-07-2023 Mental Status Oriented x 4 [facility] Discharge instructions 01-07-2023 Note Date & Type Note Facility 01-07-2023 Hospital Discharg e instructions Patient Education 01/07/2023 21:09:53 Muscle Spasm Muscle Spasm A muscle spasm is a sudden tightening of the muscle you can t control. This may be caused by strain, overworking the muscle, or injury. It can also be caused by dehydration, electrolyte imbalance, diabetes, alcohol use, and certain medicines. If it goes on long enough the muscle spasm causes pain. Common areas for muscle spasm are the legs, neck, and back. Home care Heat, massage, and stretching will help relax muscle spasm. When the spasm is in your arm or leg, stretch the muscle passively. To do this, have someone bend or straighten the joint above or below the muscle until you feel the stretch on the sore muscle. You can stretch the muscle actively by moving the affected body part. This will stretch the muscle that is in spasm. For example, if the spasm is in your calf, bend the ankle so your toes point upward toward your knee. This will stretch your calf muscle. You may use utmq-prc-[id number] pain medicine to control pain, unless another medicine was prescribed. If you have chronic liver or kidney disease or ever had a stomach ulcer or gastrointestinal bleeding, talk with your healthcare provider before using these medicines. Follow-up care Follow up with your healthcare provider, or as advised. When to seek medical advice Call your healthcare provider right away if any of the following occur: Fingers or toes become swollen, cold, blue, numb, or tingly You develop weakness in the affected arm or leg Pain increases and is not controlled by the above measures [id number] [employer]. [address] [place] [address]. All rights reserved. This information is not intended as a substitute for professional medical care. Always follow your healthcare professional's instructions. 01/07/2023 21:09:50 Back Spasm, No Trauma Back Spasm (No Trauma) Spasm of the back muscles can occur after a sudden forceful twisting or bending such as in a car accident. A spasm can also happen after a simple awkward movement, or after lifting something heavy with poor body positioning. In any case, muscle spasm adds to the pain. Sleeping in an awkward position or on a poor quality mattress can also cause this. Some people respond to emotional stress by tensing the muscles of their back. Pain that continues may need further assessment or other types of treatment such as physical therapy. You don't always need X-rays for the first assessment of back pain, unless you had a physical injury such as from a car accident or fall. If your pain continues and doesn't respond to medical treatment, X-rays and other tests may then be done. Home care As soon as possible, start sitting or walking again. This will help prevent problems from a long bed rest. These problems include muscle weakness, worsening back stiffness and pain, and blood clots in the legs. When in bed, try to find a position of comfort. A firm mattress is best. Try lying flat on your back with pillows under your knees. You can also try lying on your side with your knees bent up toward your chest and a pillow between your knees. Don't sit for long periods. Also limit car rides and travel. This puts more stress on the lower back than standing or walking. During the first 24 to 72 hours after an injury or flare-up, put an ice pack on the painful area for 20 minutes, then remove it for 20 minutes. Do this over a period of 60 to 90 minutes, or several times a day. This will reduce swelling and pain. Always wrap ice packs in a thin towel. You can start with ice, then switch to heat. Heat from a hot shower, hot bath, or heating pad reduces pain and works well for muscle spasms. Put heat on the painful area for 20 minutes, then remove it for 20 minutes. Do this over a period of 60 to 90 minutes, or several times a day. Don't sleep on a heating pad. It can burn or damage skin. Alternate using ice and heat. Be aware of safe lifting methods. don't lift anything over 15 pounds until all the pain is gone. Gentle stretching will help your back heal faster. Do this simple routine 2 to 3 times a day until your back is feeling better. Lie on your back with your knees bent and both feet on the ground. Slowly raise your left knee to your chest as you flatten your lower back against the floor. Hold for 20 to 30 seconds. Relax and repeat the exercise with your right knee. Do 2 to 3 of these exercises for each leg. Repeat, hugging both knees to your chest at the same time. Don't bounce, but use a gentle pull. Medicines Talk with your doctor before using medicine, especially if you have other medical problems or are taking other medicines. You may use yxve-loc-kkikple medicines such as acetaminophen, ibuprofen, or naprosyn to control pain, unless your healthcare provider prescribed another pain medicine. Talk with your healthcare provider if you have a chronic condition such as diabetes, liver or kidney disease, stomach ulcer, or digestive bleeding, or are taking blood thinners. Be careful if you are given prescription pain medicine, opioids, or medicine for muscle spasm. They can cause drowsiness, and affect your coordination, reflexes, and judgment. Don't drive or operate heavy machinery when taking these medicines. Take pain medicine only as prescribed by your healthcare provider. Follow-up care Follow up with your doctor, or as advised. You may need physical therapy or more tests. If X-rays were taken, they may be reviewed by a radiologist. You will be told of any new findings that may affect your care. Call Call if any of these occur: Trouble breathing Confusion Drowsiness or trouble awakening Fainting or loss of consciousness Rapid or very slow heart rate Loss of bowel or bladder control When to seek medical advice Call your healthcare provider right away if any of these occur: Pain becomes worse or spreads to your legs Weakness or numbness in one or both legs Numbness in the groin or genital area Fever of 100.4 F (38 C) or higher , or as directed by your healthcare provider Chills Burning or pain when passing urine [id number] [employer]. [address] [place] [address]. All rights reserved. This information is not intended as a substitute for professional medical care. Always follow your healthcare professional's instructions. Follow Up Care 01/07/2023 19:46:11 With:Call Physician Referral Address:Unknown When:2-4 days [facility] Clinical Note 01-07-2023 Note Date & Type Note Facility 01-07-2023 Note Discharge Instructions Thank you for allowing [facility] to assist you with your healthcare needs. The following is important discharge information regarding your hospital visit. Diagnosis from Today's Visit Back pain Back pain What to Do Next Instructions from Your Care Team No qualifying data available. Post Acute Orders No qualifying data available. You Need to Schedule the Following Appointments Follow Up with Call Physician Referral When Within 2-4 days Allergies penicillin Medications Please ask your primary doctor or pharmacist before taking any other medication not listed, including over the counter drugs, herbal medications, vitamins and or supplements as they may interact with your home medications. What How Much When Why Instructions Last Dose New acetaminophen-hydrocodone ([place] 325- 5 mg oral tablet) 1 tab(s) by mouth Every 6 hours as needed for as needed for pain Back pain Duration: 3 Days Printed Prescription New cyclobenzaprine (cyclobenzaprine 10 mg oral tablet) 1 tab(s) by mouth Three (3) times a day Duration: 5 Days Printed Prescription Please take this list to your next doctor s visit. Bring all medications you take, including over the counter medications, herbals and other supplements with you to your doctor s visit. Patients and families are reminded to discard old lists and to update any records with all medication providers or retail pharmacies. Medication Leaflets acetaminophen and hydrocodone (a SEET a MIN oh fen and madi droe KOE done) Lortab Elixir, Verdrocet What is the most important information I should know about acetaminophen and hydrocodone? MISUSE OF OPIOID MEDICINE CAN CAUSE ADDICTION, OVERDOSE, OR . Keep the medication in a place where others cannot get to it. Taking opioid medicine during may cause life-threatening withdrawal symptoms in the . Fatal side effects can occur if you use opioid medicine with alcohol, or with other drugs that cause drowsiness or slow your breathing. Stop taking this medicine and call your doctor right away if you have skin redness or a rash that spreads and causes blistering and peeling. What is acetaminophen and hydrocodone? Acetaminophen and hydrocodone is a combination medicine used to relieve moderate to severe pain. Acetaminophen and hydrocodone contains an opioid medicine, and may be habit-forming. Acetaminophen and hydrocodone may also be used for purposes not listed in this medication guide. What should I discuss with my healthcare provider before taking acetaminophen and hydrocodone? You should not use this medicine if you are allergic to acetaminophen or hydrocodone, or if you have: severe asthma or breathing problems; or a blockage in your stomach or intestines. Tell your doctor if you have ever had: breathing problems, sleep apnea (breathing stops during sleep); liver disease; a drug or alcohol addiction; kidney disease; a head injury or seizures; urination problems; or problems with your thyroid, pancreas, or gallbladder. If you use opioid medicine while you are , your baby could become dependent on the drug. This can cause life-threatening withdrawal symptoms in the baby after it is born. Babies born dependent on opioids may need medical treatment for several weeks. Ask a doctor before using opioid medicine if you are . Tell your doctor if you notice severe drowsiness or slow breathing in the nursing baby. How should I take acetaminophen and hydrocodone? Follow all directions on your prescription label. Never take this medicine in larger amounts, or for longer than prescribed. An overdose can damage your liver or cause . Tell your doctor if you feel an increased urge to use more of this medicine. Never share this medicine with another person, especially someone with a history of drug abuse or addiction. MISUSE CAN CAUSE ADDICTION, OVERDOSE, OR . Keep the medicine in a place where others cannot get to it. Selling or giving away this medicine is against the law. Measure liquid medicine carefully. Use the dosing syringe provided, or use a medicine dose-measuring device (not a kitchen spoon). If you need surgery or medical tests, tell the doctor ahead of time that you are using this medicine. You should not stop using this medicine suddenly. Follow your doctor's instructions about tapering your dose. Store at room temperature away from moisture and heat. Keep track of your medicine. You should be aware if anyone is using it improperly or without a prescription. Do not keep leftover opioid medication. Just one dose can cause in someone using this medicine accidentally or improperly. Ask your pharmacist where to locate a drug take-back disposal program. If there is no take-back program, flush the unused medicine down the toilet. What happens if I miss a dose? Since this medicine is used for pain, you are not likely to miss a dose. Skip any missed dose if it is almost time for your next dose. Do not use two doses at one time. What happens if I overdose? Seek emergency medical attention or call the Poison Help line at . An overdose of this medicine can be fatal, especially in a child or other person using the medicine without a prescription. Overdose symptoms may include nausea, vomiting, sweating, severe drowsiness, pinpoint pupils, slow breathing, or no breathing. Your doctor may recommend you get naloxone (a medicine to reverse an opioid overdose) and keep it with you at all times. A person caring for you can give the naloxone if you stop breathing or don't wake up. Your caregiver must still get emergency medical help and may need to perform CPR (cardiopulmonary resuscitation) on you while waiting for help to arrive. Anyone can buy naloxone from a pharmacy or local health department. Make sure any person caring for you knows where you keep naloxone and how to use it. What should I avoid while taking acetaminophen and hydrocodone? Avoid driving or operating machinery until you know how this medicine will affect you. Dizziness or drowsiness can cause falls, accidents, or severe injuries. Do not drink alcohol. Dangerous side effects or could occur. Ask a doctor or pharmacist before using any other medicine that may contain acetaminophen (sometimes abbreviated as APAP). Taking certain medications together can lead to a fatal overdose. What are the possible side effects of acetaminophen and hydrocodone? Get emergency medical help if you have signs of an allergic reaction: hives; difficulty breathing; swelling of your face, lips, tongue, or throat. Opioid medicine can slow or stop your breathing, and may occur. A person caring for you should give naloxone and/or seek emergency medical attention if you have slow breathing with long pauses, blue colored lips, or if you are hard to wake up. In rare cases, acetaminophen may cause a severe skin reaction that can be fatal. This could occur even if you have taken acetaminophen in the past and had no reaction. Stop taking this medicine and call your doctor right away if you have skin redness or a rash that spreads and causes blistering and peeling. Call your doctor at once if you have: noisy breathing, sighing, shallow breathing, breathing that stops; a light-headed feeling, like you might pass out; liver problems--nausea, upper stomach pain, tiredness, loss of appetite, dark urine, juan-colored stools, jaundice (yellowing of the skin or eyes); low cortisol levels-- nausea, vomiting, loss of appetite, dizziness, worsening tiredness or weakness; o high levels of serotonin in the body--agitation, hallucinations, fever, sweating, shivering, fast heart rate, muscle stiffness, twitching, loss of coordination, nausea, vomiting, diarrhea. Serious breathing problems may be more likely in older adults and in those who are debilitated or have wasting syndrome or chronic breathing disorders. Common side effects include: dizziness, drowsiness, feeling tired; nausea, vomiting, stomach pain; constipation; or headache. This is not a complete list of side effects and others may occur. Call your doctor for medical advice about side effects. You may report side effects to FDA at 0-851-UGS-2550. What other drugs will affect acetaminophen and hydrocodone? You may have breathing problems or withdrawal symptoms if you start or stop taking certain other medicines. Tell your doctor if you also use an antibiotic, antifungal medication, heart or blood pressure medication, seizure medication, or medicine to treat HIV or hepatitis C. Opioid medication can interact with many other drugs and cause dangerous side effects or . Be sure your doctor knows if you also use: cold or allergy medicines, bronchodilator asthma/COPD medication, or a diuretic ('water pill'); medicines for motion sickness, irritable bowel syndrome, or overactive bladder; other opioids--opioid pain medicine or prescription cough medicine; a sedative like Valium--diazepam, alprazolam, lorazepam, Xanax, Klonopin, Versed, and others; drugs that make you sleepy or slow your breathing--a sleeping pill, muscle relaxer, medicine to treat mood disorders or mental illness; drugs that affect serotonin levels in your body--a stimulant, or medicine for depression, Parkinson's disease, migraine headaches, serious infections, or nausea and vomiting. This list is not complete. Other drugs may affect acetaminophen and hydrocodone, including prescription and lghp-zpu-aitdjsy medicines, vitamins, and herbal products. Not all possible interactions are listed here. Where can I get more information? Your doctor or pharmacist can provide more information about acetaminophen and hydrocodone. Remember, keep this and all other medicines out of the reach of children, never share your medicines with others, and use this medication only for the indication prescribed. Every effort has been made to ensure that the information provided by [employer] is accurate, up-to-date, and complete, but no guarantee is made to that effect. Drug information contained herein may be time sensitive. [employer] information has been compiled for use by healthcare practitioners and consumers in the [place] and therefore [employer] does not warrant that uses outside of the [place] are appropriate, unless specifically indicated otherwise. [employer] drug information does not endorse drugs, diagnose patients or recommend therapy. [employer] drug information is an informational resource designed to assist licensed healthcare practitioners in caring for their patients and/or to serve consumers viewing this service as a supplement to, and not a substitute for, the expertise, skill, knowledge and judgment of healthcare practitioners. The absence of a warning for a given drug or drug combination in no way should be construed to indicate that the drug or drug combination is safe, effective or appropriate for any given patient. [employer] does not assume any responsibility for any aspect of healthcare administered with the aid of information [employer] provides. The information contained herein is not intended to cover all possible uses, directions, precautions, warnings, drug interactions, allergic reactions, or adverse effects. If you have questions about the drugs you are taking, check with your doctor, nurse or pharmacist. Copyright 7745-1793 [employer]. Version: 19.. Revision Date: 10/04/2022. cyclobenzaprine (elvira marroquin) Amrix, Fexmid What is the most important information I should know about cyclobenzaprine? You should not use cyclobenzaprine if you have a thyroid disorder, heart block, congestive heart failure, a heart rhythm disorder, or you have recently had a heart attack. Do not use cyclobenzaprine if you have taken an MAO inhibitor in the past 14 days, such as isocarboxazid, linezolid, phenelzine, rasagiline, selegiline, or tranylcypromine. What is cyclobenzaprine? Cyclobenzaprine is a muscle relaxant. It works by blocking nerve impulses (or pain sensations) that are sent to your brain. Cyclobenzaprine is used together with rest and physical therapy to relieve muscle spasms caused by painful conditions such as an injury. Cyclobenzaprine may also be used for purposes not listed in this medication guide. What should I discuss with my healthcare provider before taking cyclobenzaprine? You should not use cyclobenzaprine if you are allergic to it, or if you have: a thyroid disorder; heart block, heart rhythm disorder, congestive heart failure; or if you have recently had a heart attack. Cyclobenzaprine is not approved for use by anyone younger than 15 years old. Do not use cyclobenzaprine if you have taken an MAO inhibitor in the past 14 days. A dangerous drug interaction could occur. MAO inhibitors include isocarboxazid, linezolid, phenelzine, rasagiline, selegiline, and tranylcypromine. Some medicines can interact with cyclobenzaprine and cause a serious condition called serotonin syndrome. Be sure your doctor knows if you also take stimulant medicine, opioid medicine, herbal products, or medicine for depression, mental illness, Parkinson's disease, migraine headaches, serious infections, or prevention of nausea and vomiting. Ask your doctor before making any changes in how or when you take your medications. Tell your doctor if you have ever had: liver disease; glaucoma; enlarged prostate; or problems with urination. It is not known whether this medicine will harm an unborn baby. Tell your doctor if you are or plan to become . It may not be safe to breast-feed while using this medicine. Ask your doctor about any risk. Older adults may be more sensitive to the effects of this medicine. How should I take cyclobenzaprine? Follow all directions on your prescription label and read all medication guides or instruction sheets. Your doctor may occasionally change your dose. Use the medicine exactly as directed. Cyclobenzaprine is usually taken once daily for only 2 or 3 weeks. Follow your doctor's dosing instructions very carefully. Swallow the capsule whole and do not crush, chew, break, or open it. Take the medicine at the same time each day. Call your doctor if your symptoms do not improve after 3 weeks, or if they get worse. Store at room temperature away from moisture, heat, and light. What happens if I miss a dose? Take the medicine as soon as you can, but skip the missed dose if it is almost time for your next dose. Do not take two doses at one time. What happens if I overdose? Seek emergency medical attention or call the Poison Help line at . An overdose of cyclobenzaprine can be fatal. Overdose symptoms may include severe drowsiness, vomiting, fast heartbeats, tremors, agitation, or hallucinations. What should I avoid while taking cyclobenzaprine? Avoid driving or hazardous activity until you know how this medicine will affect you. Your reactions could be impaired. Avoid drinking alcohol. Dangerous side effects could occur. What are the possible side effects of cyclobenzaprine? Get emergency medical help if you have signs of an allergic reaction: hives; difficult breathing; swelling of your face, lips, tongue, or throat. Stop using cyclobenzaprine and call your doctor at once if you have: fast or irregular heartbeats; chest pain or pressure, pain spreading to your jaw or shoulder; or sudden numbness or weakness (especially on one side of the body), slurred speech, balance problems. Seek medical attention right away if you have symptoms of serotonin syndrome, such as: agitation, hallucinations, fever, sweating, shivering, fast heart rate, muscle stiffness, twitching, loss of coordination, nausea, vomiting, or diarrhea. Serious side effects may be more likely in older adults. Common side effects may include: drowsiness, tiredness; headache, dizziness; dry mouth; or upset stomach, nausea, constipation. This is not a complete list of side effects and others may occur. Call your doctor for medical advice about side effects. You may report side effects to FDA at 9-252-XYG-7194. What other drugs will affect cyclobenzaprine? Using cyclobenzaprine with other drugs that make you drowsy can worsen this effect. Ask your doctor before using opioid medication, a sleeping pill, a muscle relaxer, or medicine for anxiety or seizures. Tell your doctor about all your other medicines, especially: bupropion (Zyban, for smoking cessation); meperidine; tramadol; verapamil; cold or allergy medicine that contains an antihistamine (Benadryl and others); medicine to treat Parkinson's disease; medicine to treat excess stomach acid, stomach ulcer, motion sickness, or irritable bowel syndrome; medicine to treat overactive bladder; or bronchodilator asthma medication. This list is not complete. Other drugs may affect cyclobenzaprine, including prescription and usla-oeo-ahaflak medicines, vitamins, and herbal products. Not all possible drug interactions are listed here. Where can I get more information? Your pharmacist can provide more information about cyclobenzaprine. Remember, keep this and all other medicines out of the reach of children, never share your medicines with others, and use this medication only for the indication prescribed. Every effort has been made to ensure that the information provided by [employer]. ('[employer]') is accurate, up-to-date, and complete, but no guarantee is made to that effect. Drug information contained herein may be time sensitive. [employer] information has been compiled for use by healthcare practitioners and consumers in the [place] and therefore [employer] does not warrant that uses outside of the [place] are appropriate, unless specifically indicated otherwise. [employer] drug information does not endorse drugs, diagnose patients or recommend therapy. [employer] drug information is an informational resource designed to assist licensed healthcare practitioners in caring for their patients and/or to serve consumers viewing this service as a supplement to, and not a substitute for, the expertise, skill, knowledge and judgment of healthcare practitioners. The absence of a warning for a given drug or drug combination in no way should be construed to indicate that the drug or drug combination is safe, effective or appropriate for any given patient. [employer] does not assume any responsibility for any aspect of healthcare administered with the aid of information [employer] provides. The information contained herein is not intended to cover all possible uses, directions, precautions, warnings, drug interactions, allergic reactions, or adverse effects. If you have questions about the drugs you are taking, check with your doctor, nurse or pharmacist. Copyright 5195-6056 [employer]. Version: 7.01. Revision Date: 09/17/2022. Education Materials Muscle Spasm A muscle spasm is a sudden tightening of the muscle you can t control. This may be caused by strain, overworking the muscle, or injury. It can also be caused by dehydration, electrolyte imbalance, diabetes, alcohol use, and certain medicines. If it goes on long enough the muscle spasm causes pain. Common areas for muscle spasm are the legs, neck, and back. Home care Heat, massage, and stretching will help relax muscle spasm. When the spasm is in your arm or leg, stretch the muscle passively. To do this, have someone bend or straighten the joint above or below the muscle until you feel the stretch on the sore muscle. You can stretch the muscle actively by moving the affected body part. This will stretch the muscle that is in spasm. For example, if the spasm is in your calf, bend the ankle so your toes point upward toward your knee. This will stretch your calf muscle. You may use sekz-ekr-pltadaw pain medicine to control pain, unless another medicine was prescribed. If you have chronic liver or kidney disease or ever had a stomach ulcer or gastrointestinal bleeding, talk with your healthcare provider before using these medicines. Follow-up care Follow up with your healthcare provider, or as advised. When to seek medical advice Call your healthcare provider right away if any of the following occur: Fingers or toes become swollen, cold, blue, numb, or tingly You develop weakness in the affected arm or leg Pain increases and is not controlled by the above measures 0696-8383 [employer]. [address] [place] [address] 39565. All rights reserved. This information is not intended as a substitute for professional medical care. Always follow your healthcare professional's instructions. Back Spasm (No Trauma) Spasm of the back muscles can occur after a sudden forceful twisting or bending such as in a car accident. A spasm can also happen after a simple awkward movement, or after lifting something heavy with poor body positioning. In any case, muscle spasm adds to the pain. Sleeping in an awkward position or on a poor quality mattress can also cause this. Some people respond to emotional stress by tensing the muscles of their back. Pain that continues may need further assessment or other types of treatment such as physical therapy. You don't always need X-rays for the first assessment of back pain, unless you had a physical injury such as from a car accident or fall. If your pain continues and doesn't respond to medical treatment, X-rays and other tests may then be done. Home care As soon as possible, start sitting or walking again. This will help prevent problems from a long bed rest. These problems include muscle weakness, worsening back stiffness and pain, and blood clots in the legs. When in bed, try to find a position of comfort. A firm mattress is best. Try lying flat on your back with pillows under your knees. You can also try lying on your side with your knees bent up toward your chest and a pillow between your knees. Don't sit for long periods. Also limit car rides and travel. This puts more stress on the lower back than standing or walking. During the first 24 to 72 hours after an injury or flare-up, put an ice pack on the painful area for 20 minutes, then remove it for 20 minutes. Do this over a period of 60 to 90 minutes, or several times a day. This will reduce swelling and pain. Always wrap ice packs in a thin towel. You can start with ice, then switch to heat. Heat from a hot shower, hot bath, or heating pad reduces pain and works well for muscle spasms. Put heat on the painful area for 20 minutes, then remove it for 20 minutes. Do this over a period of 60 to 90 minutes, or several times a day. Don't sleep on a heating pad. It can burn or damage skin. Alternate using ice and heat. Be aware of safe lifting methods. don't lift anything over 15 pounds until all the pain is gone. Gentle stretching will help your back heal faster. Do this simple routine 2 to 3 times a day until your back is feeling better. Lie on your back with your knees bent and both feet on the ground. Slowly raise your left knee to your chest as you flatten your lower back against the floor. Hold for 20 to 30 seconds. Relax and repeat the exercise with your right knee. Do 2 to 3 of these exercises for each leg. Repeat, hugging both knees to your chest at the same time. Don't bounce, but use a gentle pull. Medicines Talk with your doctor before using medicine, especially if you have other medical problems or are taking other medicines. You may use qtkn-ntn-pfheylx medicines such as acetaminophen, ibuprofen, or naprosyn to control pain, unless your healthcare provider prescribed another pain medicine. Talk with your healthcare provider if you have a chronic condition such as diabetes, liver or kidney disease, stomach ulcer, or digestive bleeding, or are taking blood thinners. Be careful if you are given prescription pain medicine, opioids, or medicine for muscle spasm. They can cause drowsiness, and affect your coordination, reflexes, and judgment. Don't drive or operate heavy machinery when taking these medicines. Take pain medicine only as prescribed by your healthcare provider. Follow-up care Follow up with your doctor, or as advised. You may need physical therapy or more tests. If X-rays were taken, they may be reviewed by a radiologist. You will be told of any new findings that may affect your care. Call Call if any of these occur: Trouble breathing Confusion Drowsiness or trouble awakening Fainting or loss of consciousness Rapid or very slow heart rate Loss of bowel or bladder control When to seek medical advice Call your healthcare provider right away if any of these occur: Pain becomes worse or spreads to your legs Weakness or numbness in one or both legs Numbness in the groin or genital area Fever of 100.4 F (38 C) or higher , or as directed by your healthcare provider Chills Burning or pain when passing urine 5284-1156 [employer]. [address] [place] [address]. All rights reserved. This information is not intended as a substitute for professional medical care. Always follow your healthcare professional's instructions. Additional Information VACCINATE! IT SAVES LIVES! Members of the community who have not yet received the COVID-19 vaccine and would like to receive it can visit one of [facility] vaccine clinics. There are many vaccine clinic locations within the [facility]. For locations and available times, please visit [email or web address].[email or web address]/. It is important to note that some COVID mobile vaccine clinics are held outdoors and may be canceled in rainy or stormy conditions. To learn more about pediatric vaccinations (ages 5-11), we invite you to visit the [facility] webpage. [email or web address]/pages/2 [email or web address]-Bbcui-Yoxsbxkqrss-Frequently-Asked -Questions.html To learn more about the COVID-19 vaccine, we invite you to visit the CDC website for a list of frequently asked questions. https://www.cdc.gov/coronavirus/2019-n cov/vaccines/faq.html [facility] Patient Portal Access Instructions: Stay connected with your healthcare team and access your personal medical information anytime with the [facility] Patient Portal. If you would like a full copy of your medical records please contact the [facility] Medical Records Department Tuesday through Tuesday between 8a.m. and 4:30p.m. Please follow the directions below to access the portal: 1.Access the email account you provided upon registration to the [facility].2.Look for an invitation email from [facility].3.Open the email and access the invitation link: Accept Invitation to [facility].Fill in the required freeman to create your account. Sign into [email or web address] with your username and password that you created in the above steps to stay up to date. You can then view a summary of results, a summary of your visits, and the ability to download your summaries to your computer or send the information securely to a physician. Remember that your healthcare information is confidential, so carefully consider who you will allow to register on the [facility] Patient Portal for access to your information. You can also access the [facility] Patient Portal on the [employer] mary lou. Simply click on Health Records under Health Data and then click on the [employer] logo. HOW TO SAFELY DISPOSE OF PRESCRIPTION MEDICATIONS Please use one of the following methods to safely dispose of your unused medications. 1.Use a drug disposal kit: the drug disposal pouch allows you to safely discard your old and unused drugs. Ask your nurse to give you one when you are discharged.2.Visit a local take-back location: Many local pharmacies and police departments have programs that collect old and unwanted prescription drugs. Call your local pharmacy or go to http://bit.[employer]/9K7Bg4x to find one close to you.3.Make use of household items: Use cat litter or old coffee grounds to dispose medications if other options are not available. Mix your drugs with these household products, seal them in an airtight container and throw it into the garbage. Call [facility]: [phone] to be sure your drugs can be disposed of in this way. Some medicines may require a different approach.4.Never flush your medications down the toilet. IF YOU HAVE BEEN PRESCRIBED AN OPIOIDS FOR PAIN If you have been prescribed an opioid (such as hydrocodone, oxycodone or morphine), it is critical to understand the possible side effects and risks of opioid pain medications. Even when taken as directed, opioids can have several side effects including: Tolerance, meaning you might need to take more of a medication for the same pain relief. Nausea, vomiting and/or constipation. Sleepiness, dizziness, dry mouth, confusion, depression or itching. Physical dependence, meaning you have withdrawal symptoms when a medication is stopped ? this can develop within a few days. KNOW YOUR RESPONSIBILITIES It is important to know exactly how much and how often to take the opioid pain medications you are prescribed. Never take opioids in higher amounts or more often than prescribed. Do not combine opioids with alcohol or other drugs that cause drowsiness, such as benzodiazepines, also known as benzos, including diazepam and alprazolam, muscle relaxants or sleep aids. Never sell or share prescription opioids. This is illegal. Store opioids in a secure place and out of reach of others (including children, family, friends and visitors). The last page(s) of this document has been signed and retained as a CHART COPY Signatures Patient Education Materials Muscle Spasm Back Spasm, No Trauma Medication Leaflets acetaminophen and hydrocodone, cyclobenzaprine My discharge plan and instructions have been reviewed and explained to me and IDESIREE ROBIN understand my current condition and have read and understand these discharge instructions. I have received a written copy of the plan/instructions. If I have questions, I am aware that I should contact my doctor. 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 There are low lung volumes with hypoventilatory changes. There is no pleural effusion or pneumothorax. No acute osseous abnormality. IMPRESSION: Low lung volumes with hypoventilatory changes. Otherwise, no acute radiographic findings. Interpreted by: Rommel Moreira MD Preliminary Report By: Rommel Moreira MD Electronically signed By Rommel Moreira MD Dictated Date: 01/07/2023 8:45:01 PM Prelim Date: 01/07/2023 8:45:31 PM Sign Date: 01/07/2023 8:45:31 PM Ordering Provider: KYLE MINOR [facility] Clinical Note 01-07-2023 Note Date & Type Note Facility 01-07-2023 Note Sinus rhythm Borderline T abnormalities, inferior leads Baseline wander in lead(s) II,aVF BORDERLINE ECG Electronic Signature: KYLE MINOR DO 01/07/2023 21:06:46 [facility] Evaluation + Plan note Note Date & Type Note Facility Evaluation + Plan note No data available for this section [facility] Summary Purpose Family History No Family History Records FoundNo Family History Records Found No data available for this section No Family History Records Found Advance Directives No Advanced Directives Records FoundNo Advanced Directives Records FoundNo Advanced Directives Records Found Additional Source Comments INFORMATION SOURCE (unrecogn ized section and content) DATE CREATED AUTHOR AUTHOR'S ORGANIZ ATION 11/28/2017 [facility]erie t[facility] [place] DATE CREATED AUTHOR AUTHOR'S ORGANIZ ATION 01/14/2023 [facility] ([place]) Patient Care team informatio n (unrecognized section and content) Care Team Personnel Name: PHYSICIAN, NONE Position: Physician Member Role: Primary Care Physician Name: KYLE MINOR DO Position: ED Physician Member Role: ED Physician Address: Address: [address] [place] [address] FOR RECORDS PERTAINING TO PATIENTS WHO ARE OR HAVE BEEN ENROLLED IN A CHEMICAL DEPENDENCY/SUBSTANCEABUSE PROGRAM, SOME INFORMATION MAY BE OMITTED. This clinical summary was aggregated from multiple sources. Caution should be exercised in using it in the provision of clinical care. This summary normalizes information from multiple sources, and as a consequence, information in this document may materially change the coding, format and clinical context of patient data. In addition, data may be omitted in some cases. CLINICAL DECISIONS SHOULD BE BASED ON THE PRIMARY CLINICAL RECORDS. [facility] [employer] provides no warranty or guarantee of the accuracy or completeness of information in this document.
== END | disposition home or self-care (01) ==
LOC: US 14:20
PROVIDERS: PCP Nurse Practitioner Family; Referring Provider Obstetrics & Gynecology; Visit Provider Obstetrics & Gynecology
DX: N85.00 Endometrial hyperplasia, unspecified (principal)
CPT/HCPCS: 76830; 76856

== ENCOUNTER → 2023-03-11 | Outpatient (CLI) | payer MEDICAID, SELFPAY ==
--- NOTE | 2023-03-11 14:26 | RAD_ITS ---
EXAM: XR LEFT HAND, 2 VIEWS CLINICAL INDICATION: PAIN IN L HAND TECHNIQUE: Frontal and lateral views of the left hand. COMPARISON: No relevant prior studies available. FINDINGS: BONES/JOINTS: Borderline widened scapholunate interval. No acute fracture. No subluxation. Normal alignment. Preservation of the joint space. No sclerotic or destructive changes observed. SOFT TISSUES: Unremarkable. No soft tissue swelling or gas. No radiopaque foreign body. RAD/Hand 2 Views IMPRESSION: Borderline widened scapholunate interval. Scapholunate disassociation not excluded. No acute fracture. Electronically Signed: David Castanon MD at 23:41 EST ,
--- OUTSIDE RECORDS SUMMARY | 2023-03-11 14:46 | XMS RPT_ITS | CCD ---
Author Name Unknown Address [address] [place] [address] Organization [facility] Care Team Providers Care Assistant Maintenance Manager Name Role Phone CORDELIA GALLARDO () Unavailable [...] to adverse reactions to drug (disorder) 6 [facility] Repository (1 source) Penicillin; Translations: [penicillin] Drug Allergy [facility] Medications Current Medications Medication Drug Class(es) Dates Sig (Normalized) Sig (Original) acetaminophen 325 mg / HYDROcodone bitartrate 5 mg oral tablet (1 source) Opioid Agonist Start: 01-07-2023 End: 01-10-2023 take 1 tablet by mouth every six hours as needed for pain [place] 325- 5 mg oral tablet Dose = [...] asif 01-07-2023 20:37-0500 Blood Pressure Location KYLE [employer] [facility] 01-07-2023 20:37-0500 Blood Pressure Method KYLE BALDERASLily Heliatek [facility] 01-07-2023 20:37-0500 Diastolic Blood Pressure Non-Invasive 73 mm[Hg] [facility] [employer] [facility] 01-07-2023 20:37-0500 Heart rate 94 /min [facility] [employer] [facility] 01-07-2023 20:37-0500 Respiratory rate 16 /min [facility] [employer] [facility] 01-07-2023 20:37-0500 Systolic Blood Pressure Non-Invasive 128 mm[Hg] KYLE MCCLELLANMELT DO [facility] 01-07-2023 20:31-0500 Blood Pressure Location KYLE FROMMELT DO [facility] 01-07-2023 20:31-0500 Blood Pressure Method KYLE BALDERAST D O [facility] 01-07-2023 20:31-0500 Diastolic Blood Pressure Non-Invasive 101 mm[Hg] KYLE BALDERAST DO [facility] 01-07-2023 20:31-0500 Heart rate 93 /min KYLE BALDERAST DO [facility] 01-07-2023 20:31-0500 Respiratory rate 16 /min KYLE BALDERAST DO [facility] 01-07-2023 20:31-0500 Systolic Blood Pressure Non-Invasive 132 mm[Hg] KYLE BALDERAST DO [facility] 01-07-2023 19:57-0500 Blood Pressure Location KYLE MCCLELLANMELT DO [facility] 01-07-2023 19:57-0500 Blood Pressure Method KYLE BALDERAST D O [facility] 01-07-2023 19:57-0500 Body height 170.2 cm KYLE BALDERAST DO [facility] 01-07-2023 19:57-0500 Body temperature 99.32 [degF] KYLE MCCLELLANMELT DO [facility] 01-07-2023 19:57-0500 Body weight 106.8 kg KYLE MCCLELLANMELT DO [facility] 01-07-2023 19:57-0500 Diastolic Blood Pressure Non-Invasive 103 mm[Hg] KYLE MINOR DO [facility] 01-07-2023 19:57-0500 Heart rate 122 /min KYLE MINOR DO [facility] 01-07-2023 19:57-0500 Respiratory rate 20 /min KYLE MINOR DO [facility] 01-07-2023 19:57-0500 Systolic Blood Pressure Non-Invasive 157 mm[Hg] KYLE MINOR DO [facility] Encounters Encounter Date Encounter Type Care Provider Facility Start: 01-07-2023 End: 01-07-2023 Emergency department patient visit KYLE MINOR DO Facility:B Start: 01-07-2023 End: 01-07-2023 Emergency department patient visit KYLE MINOR DO [facility] Start: 11-01-2017 Patient encounter Hardik murillo:[facility] Start: 08-30-2017 Patient encounter Hardik Piperdaniel Sage cility:[facility] Start: 08-03-2017 Evaluation and management of inpatient Daniel Jolly Facility:[facility] Start: 07-20-2017 Evaluation and management of inpatient Daniel Jolly Facility:[facility] Start: 05-25-2017 Patient encounter Hardik Piperdaniel Sage jessicaty:[facility] Start: 04-13-2017 Patient encounter Hardikce lopezty:[facility] Start: 04-06-2017 Evaluation and management of inpatient Daniel Jolly Facility:[facility] Start: 03-17-2017 Patient encounter Hardik murillo:[facility] Start: 12-21-2016 Patient encounter Marija Santos Facility:[facility] Start: 08-20-2016 End: 08-23-2016 Ambulatory MELONY (PEG) GAYE [facility] Start: 08-09-2016 End: 08-09-2016 Ambulatory CORDELIA GALLARDO [facility] Immunizations Immunization Date Immunization Notes Care Provider Chu murillo 05-26-2020 SARS-CoV-2 (COVID-19 ) [id number] vaccine KYLE MINOR DO [facility] Payers Date Payer Category Payer Unknown [id number] 2016 Unknown [id number] 1960 Unknown [id number] Social History Date Type Detail Facility Tobacco smoking status No Smoking Status Entered [facility] Sex Assigned At Female [facility] Functional Status Date Assessment Result Facility 01-07-2023 Functional Status ID band on, Allergy Band on, Call device within reach, Bed in low position, Wheels locked, Bedside Cart Locked, Visitor at bedside [facility] Mental Status Date Assessment Result Facility 01-07-2023 Mental Status Oriented x 4 [facility] Discharge instructions 01-07-2023 Note Date & Type [...] stretch your calf muscle. You may use vxkb-vvj-wgflhdx pain medicine to control pain, unless another [...] is not controlled by the above measures [id number] [employer]. [address] [place] [address]. All rights reserved. This information is not [...] are taking other medicines. You may use iicw-twp-yxoyilz medicines such as acetaminophen, ibuprofen, or naprosyn [...] Chills Burning or pain when passing urine [id number] [employer]. [address] [place] [address]. All rights reserved. This information is not intended as a substitute for professional medical care. Always follow your healthcare professional's instructions. Follow Up Care 01/07/2023 19:46:11 With:Call Physician Referral Address:Unknown When:2-4 days [facility] Clinical Note 01-07-2023 Note Date & Type Note Facility 01-07-2023 Note Discharge Instructions Thank you for allowing [facility] to assist you with your healthcare needs. [...] When Why Instructions Last Dose New acetaminophen-hydrocodone ([place] 325- 5 mg oral tablet) 1 tab(s) [...] may report side effects to FDA at 5-179-GKN-6516. What other drugs will affect acetaminophen and [...] affect acetaminophen and hydrocodone, including prescription and fqqk-nkd-ltyoado medicines, vitamins, and herbal products. Not all [...] to ensure that the information provided by [employer]. ('[employer]') is accurate, up-to-date, and complete, but no guarantee is made to that effect. Drug information contained herein may be time sensitive. [employer] information has been compiled for use by healthcare practitioners and consumers in the [place] and therefore [employer] does not warrant that uses outside of the [place] are appropriate, unless specifically indicated otherwise. [employer] drug information does not endorse drugs, diagnose patients or recommend therapy. [employer] drug information is an informational resource designed [...] effective or appropriate for any given patient. [employer] does not assume any responsibility for any aspect of healthcare administered with the aid of information [employer] provides. The information contained herein is not intended to cover all possible uses, directions, precautions, warnings, drug interactions, allergic reactions, or adverse effects. If you have questions about the drugs you are taking, check with your doctor, nurse or pharmacist. Copyright 6011-8617 [employer]. Version: 19.. Revision Date: 10/04/2022. cyclobenzaprine (elvira [...] may report side effects to FDA at 8-642-FZE-4090. What other drugs will affect cyclobenzaprine? Using [...] drugs may affect cyclobenzaprine, including prescription and gbkt-uqe-ihbdjhl medicines, vitamins, and herbal products. Not all [...] to ensure that the information provided by [employer]. [employer]') is accurate, up-to-date, and complete, but no guarantee is made to that effect. Drug information contained herein may be time sensitive. [employer] information has been compiled for use by healthcare practitioners and consumers in the [place] and therefore [employer] does not warrant that uses outside of the [place] are appropriate, unless specifically indicated otherwise. [employer] drug information does not endorse drugs, diagnose patients or recommend therapy. [employer] drug information is an informational resource designed [...] effective or appropriate for any given patient. [employer] does not assume any responsibility for any aspect of healthcare administered with the aid of information [employer] provides. The information contained herein is not intended to cover all possible uses, directions, precautions, warnings, drug interactions, allergic reactions, or adverse effects. If you have questions about the drugs you are taking, check with your doctor, nurse or pharmacist. Copyright 4937-3349 [employer]. Version: 7.01. Revision Date: 09/17/2022. Education Materials [...] stretch your calf muscle. You may use gpzg-iio-ymogmee pain medicine to control pain, unless another [...] is not controlled by the above measures [id number] [employer]. [address] [place] [address]. All rights reserved. This information is not [...] are taking other medicines. You may use pblg-axs-qkyponv medicines such as acetaminophen, ibuprofen, or naprosyn [...] Chills Burning or pain when passing urine [id number] [employer]. [address] [place] [address]. All rights reserved. This information is not intended as a substitute for professional medical care. Always follow your healthcare professional's instructions. Additional Information VACCINATE! IT SAVES LIVES! Members of the community who have not yet received the COVID-19 vaccine and would like to receive it can visit one of [facility] vaccine clinics. There are many vaccine clinic locations within the [facility]. For locations and available times, please visit [email or web address]/. It is important to note that some COVID mobile vaccine clinics are held outdoors and may be canceled in rainy or stormy conditions. To learn more about pediatric vaccinations (ages 5-11), we invite you to visit the [facility] webpage. [email or web address]/pages/[email or web address]-Ajdgq-Zegvhzastau-Frequently-[email or web address] -Questions.html To learn more about the COVID-19 vaccine, we invite you to visit the CDC website for a list of frequently asked questions. https://www.cdc.gov/coronavirus/2019-n cov/vaccines/faq.html [facility] Patient Portal Access Instructions: Stay connected with your healthcare team and access your personal medical information anytime with the [facility] Patient Portal. If you would like a full copy of your medical records please contact the [facility] Medical Records Department Tuesday through Tuesday between 8a.m. and 4:30p.m. Please follow the directions below to access the portal: 1.Access the email account you provided upon registration to the [facility].2.Look for an invitation email from [facility].3.Open the email and access the invitation link: Accept Invitation to [facility]4.Fill in the required freeman to create your account. Sign into [email or web address] with your username and password that you [...] you will allow to register on the [facility] Patient Portal for access to your information. You can also access the [facility] Patient Portal on the [employer] mary lou. Simply click on Health Records under Health Data and then click on the [employer] logo. HOW TO SAFELY DISPOSE OF PRESCRIPTION [...] Call your local pharmacy or go to http://bit.[employer]/2H4Wp8f to find one close to you.3.Make use of household items: Use cat litter or old coffee grounds to dispose medications if other options are not available. Mix your drugs with these household products, seal them in an airtight container and throw it into the garbage. Call [facility]: [phone] to be sure your drugs can be [...] aware that I should contact my doctor. Patient/Caustic Loader Signature: _ Date/Time: Relationship to Patient: Witness Name/Signature: Date/Time: [facility] Clinical Note 01-07-2023 Note Date & Type [...] 01/07/2023 8:45:31 PM Ordering Provider: KYLE MINOR [facility] Clinical Note 01-07-2023 Note Date & Type Note Facility 01-07-2023 Note Sinus rhythm Borderline T abnormalities, inferior leads Baseline wander in lead(s) II,aVF BORDERLINE ECG Electronic Signature: KYLE MINOR DO 01/07/2023 21:06:46 [facility] Evaluation + Plan note Note Date & Type Note Facility Evaluation + Plan note No data available for this section [facility] Summary Purpose Family History No Family History Records FoundNo Family History Records Found No data available for this section No Family History Records Found Advance Directives No Advanced Directives Records FoundNo Advanced Directives Records FoundNo Advanced Directives Records Found Additional Source Comments INFORMATION SOURCE (unrecogn ized section and content) DATE CREATED AUTHOR AUTHOR'S ORGANIZ ATION 11/28/2017 [facility] Valerie tineo Wilcox DATE CREATED AUTHOR AUTHOR'S ORGANIZ ATION 01/14/2023 [facility] ([place]) Patient Care team informatio n (unrecognized section and content) Care Team Personnel Name: PHYSICIAN, NONE Position: Physician Member Role: Primary Care Physician Name: KYLE MINOR DO Position: ED Physician Member Role: ED Physician Address: Address: [address] [place] [address] FOR RECORDS PERTAINING TO PATIENTS WHO ARE [...] BE BASED ON THE PRIMARY CLINICAL RECORDS. [facility] [employer] provides no warranty or guarantee of the accuracy or completeness of information in this document.
== END | disposition home or self-care (01) ==
LOC: RAD 14:20
PROVIDERS: PCP Nurse Practitioner Family; Referring Provider Nurse Practitioner Family; Visit Provider Nurse Practitioner Family
DX: M79.642 Pain in left hand (principal)
CPT/HCPCS: 73120

== ENCOUNTER → 2023-03-14 | Outpatient (CLI) | payer MEDICAID, SELFPAY ==
[2023-03-14 15:06] LABS: Absolute Lymphocyte Count 2.45 X10^3/uL (0.83-4.51); Absolute Neutrophil Count 3.9 X10^3/uL (2.0-7.7); Basophil# 0.08 X10^3/uL; Basophil% 1.2 % (0-1); Eosinophil# 0.18 X10^3/uL; Eosinophils% 2.6 % (0-5); Hematocrit 44.8 % (37-47); Hemoglobin 14.9 g/dL (12.0-15.0); Lymphocyte # 2.45 X10^3/ul (0.83-4.51); Lymphocyte % 35.3 % (19-41); Mean Corp Hgb Conc 33.3 g/dL (32-36); Mean Corpuscular Hgb 30.7 pg (27.0-32.0); Mean Corpuscular Volume 92.2 fL (81-99); Mean Platelet Vol. 11.9 fl (6.2-12.0); Monocyte# 0.31 X10^3/uL; Monocyte% 4.5 % (0-10); NRBC Flagged by Analyzer 0 % (0-5); Neutrophil % 56.1 % (47-70); Platelet Count 258 K/mm3 (150-450); RBC Distribution Width CV 12.7 % (11.6-14.6); Red Blood Count 4.86 M/mm3 (4.2-5.4); White Blood Count 6.9 K/mm3 (4.4-11.0)
[2023-03-14 15:18] LABS: Vitamin B12 366 pg/mL (211-911); Vitamin D,25 Hydroxy 24.4 ng/mL
[2023-03-14 15:31] LABS: ALB/GLOB Ratio 0.9 RATIO (0.9-2.4); AST(SGOT) 14 U/L (15-37); Alanine Aminotransfer ALT/SGPT 21 U/L (13-56); Albumin, Serum 3.5 g/dL (3.2-5.0); Alkaline Phosphatase 89 U/L (45-117); Anion Gap 5 (5-15); BUN 23 mg/dL (7-18); BUN/Creat Ratio 28.3 RATIO (10-20); Calcium,Total 9.2 mg/dL (8.5-10.1); Chloride 104 mmol/L (98-107); Cholesterol 177 mg/dL (200); Creatinine, Serum 0.81 mg/dL (0.55-1.02); EST Glomerular Filtration Rate 76 mL/min (>60); Est Glom Filt Rate - Afr Amer 92 mL/min (>60); Globulin 3.9 g/dL (2.2-4.2); Glucose 150 mg/dL (74-106); High Density Lipoprotein 37 mg/dL; Potassium 3.9 mmol/L (3.5-5.1); Protein, Total 7.4 g/dL (6.4-8.2); Sodium Level 136 mmol/L (136-145); Triglycerides 103 mg/dL; Very Low Density Lipoprotein 21 mg/dL (5-40)
== END | disposition home or self-care (01) ==
LOC: BIMLAB 13:07
PROVIDERS: PCP Nurse Practitioner Family; Referring Provider Nurse Practitioner Family; Visit Provider Nurse Practitioner Family
DX: E11.9 Type 2 diabetes mellitus without complications (principal); E56.9 Vitamin deficiency, unspecified
CPT/HCPCS: 36415; 80053; 80061; 82306; 82607; 83036; 84443; 85025

== ENCOUNTER → 2023-05-26 | Outpatient (CLI) | payer MEDICAID, SELFPAY ==
--- NOTE | 2023-05-26 17:53 | US_ITS ---
INDICATION: THYROID NODULE EXAMINATION: Ultrasound US Thyroid (eg thyroid, parathyroid, parotid) TECHNIQUE: Byrne scale and color doppler imaging was performed of the thyroid gland. COMPARISON: FINDINGS: RIGHT THYROID LOBE: 5.3 x 2.1 x 1.5 cm. Homogeneous echotexture with normal vascularity. [Upper pole 7 x 5 x 4 mm cystic nodule. Lower pole 9 x 8 x 5 mm heterogeneous solid nodule. LEFT THYROID LOBE: 4.7 x 1.8 x 1.2 cm. Homogeneous echotexture with normal vascularity. [Lower pole 5 x 3 x 4 mm solid nodule. Mid thyroid 2 x 5 x 3 mm nodule. Upper pole cystic 7 x 3 x 5 mm nodule. ISTHMUS: 3 mm. There is a right-sided 11 x 7 x 4 mm heterogeneous solid nodule. There is an adjacent 4 x 2 x 2 mm slightly hypoattenuated nodule. There is a left-sided 1.6 x 0.4 x 0.8 cm in node. US/Thyroid IMPRESSION: Bilateral solid and cystic nodules as noted in the thyroid. No prior studies available for comparison. Follow-up in 4-6 months if needed. Electronically Signed: Yaya Bynum DO at 20:41 EDT Reading Location ID and State: [facility] / [place] Tel [phone], Service support ,
== END | disposition home or self-care (01) ==
LOC: US 17:49
PROVIDERS: PCP Nurse Practitioner Family; Referring Provider Nurse Practitioner Family; Visit Provider Nurse Practitioner Family
DX: E04.9 Nontoxic goiter, unspecified (principal)
CPT/HCPCS: 76536

== ENCOUNTER → 2023-09-06 | Outpatient (CLI) | payer MEDICAID, SELFPAY ==
[2023-09-06 15:12] LABS: Absolute Lymphocyte Count 2.93 X10^3/uL (0.83-4.51); Basophil# 0.08 X10^3/uL; Basophil% 0.9 % (0-1); Eosinophil# 0.22 X10^3/uL; Eosinophils% 2.6 % (0-5); Hematocrit 45.6 % (37-47); Hemoglobin 15.1 g/dL (12.0-15.0); Lymphocyte # 2.93 X10^3/ul (0.83-4.51); Lymphocyte % 34.1 % (19-41); Mean Corp Hgb Conc 33.1 g/dL (32-36); Mean Corpuscular Hgb 30.8 pg (27.0-32.0); Mean Corpuscular Volume 93.1 fL (81-99); Mean Platelet Vol. 11.7 fl (6.2-12.0); Monocyte# 0.37 X10^3/uL; Monocyte% 4.3 % (0-10); NRBC Flagged by Analyzer 0 % (0-5); Neutrophil # 4.98 X10^3/uL (2.7-7.7); Platelet Count 272 K/mm3 (150-450); RBC Distribution Width CV 12.7 % (11.6-14.6); RBC Distribution Width SD 43.6 fl (35.1-43.9); White Blood Count 8.6 K/mm3 (4.4-11.0)
[2023-09-06 15:25] LABS: Vitamin B12 337 pg/mL (211-911)
[2023-09-06 15:32] LABS: ALB/GLOB Ratio 0.9 RATIO (0.9-2.4); AST(SGOT) 15 U/L (15-37); Alanine Aminotransfer ALT/SGPT 26 U/L (13-56); Albumin, Serum 3.5 g/dL (3.2-5.0); Alkaline Phosphatase 83 U/L (45-117); Anion Gap 8 (5-15); BUN 20 mg/dL (7-18); BUN/Creat Ratio 25.6 RATIO (10-20); Calcium,Total 9.5 mg/dL (8.5-10.1); Chloride 105 mmol/L (98-107); Cholesterol 174 mg/dL (200); Creatinine, Serum 0.78 mg/dL (0.55-1.02); EST Glomerular Filtration Rate 80 mL/min (>60); Est Glom Filt Rate - Afr Amer 96 mL/min (>60); Glucose 141 mg/dL (74-106); High Density Lipoprotein 44 mg/dL; Potassium 3.9 mmol/L (3.5-5.1); Protein, Total 7.5 g/dL (6.4-8.2); Sodium Level 139 mmol/L (136-145); Thyroid Stim Hormone (TSH) 1.76 uIU/mL (0.358-3.74); Triglycerides 107 mg/dL; Very Low Density Lipoprotein 21 mg/dL (5-40)
[2023-09-06 16:59] LABS: Hemoglobin A1c 6.1 % (3.8-5.6)
== END | disposition home or self-care (01) ==
LOC: BIMLAB 12:07
PROVIDERS: PCP Nurse Practitioner Family; Referring Provider Nurse Practitioner Family; Visit Provider Nurse Practitioner Family
DX: E11.9 Type 2 diabetes mellitus without complications (principal); I10 Essential (primary) hypertension; F32.9 Major depressive disorder, single episode, unspecified; E56.9 Vitamin deficiency, unspecified
CPT/HCPCS: 36415; 80053; 80061; 82306; 82607; 83036; 84443; 85025

== ENCOUNTER → 2023-12-26 | Outpatient (CLI) | payer MEDICAID, SELFPAY | END | disposition home or self-care (01) | LOC: OPBI 16:10 | PROVIDERS: PCP Nurse Practitioner Family; Referring Provider Nurse Practitioner Family; Visit Provider Nurse Practitioner Family | DX: Z12.31 Encounter for screening mammogram for malignant neoplasm of breast (principal) | CPT/HCPCS: 77063; 77067 ==

== ENCOUNTER → 2024-03-29 | Outpatient (CLI) | payer MEDICAID, SELFPAY ==
--- NOTE | 2024-03-29 15:35 | US_ITS ---
PROCEDURE: TRANSVAGINAL NON- TECHNIQUE: Transvaginal pelvic ultrasound COMPARISON: None. FINDINGS: Measurements: Uterus: 5.9 cm x 3.3 cm x 2.7 cm. Endometrial Thickness: 3.6 mm Right Ovary: 2.5 cm x 1.7 cm x 1.7 cm with a volume of 3.8 mL. Left Ovary: 2.8 cm x 2.2 cm x 1.7 cm with a volume of 2.2 mL. IUD is in the fundal portion of the uterus. Transvaginal sonography was performed to better visualize the endometrium. TRANSVAGINAL: Uterus: Anteverted. Normal contour and myometrial echotexture. Endometrium: Normal echotexture. Right ovary: Normal size and echotexture. Left ovary: Normal size and echotexture. Other adnexal findings: None. Cul-de-sac: No free intraperitoneal fluid identified. No tenderness. US/Transvaginal Non- IMPRESSION: TRANSVAGINAL PELVIC ULTRASOUND. Reading Location: [id number]
--- NOTE | 2024-03-29 15:36 | US_ITS ---
PROCEDURE: THYROID REASON FOR EXAM: History of thyroid nodules. TECHNIQUE: Thyroid ultrasound COMPARISON: Comparison is made with prior study dated May 26, 2023. FINDINGS: Right thyroid lobe measures 4.8 cm x 1.77 x 1.7 cm. Left thyroid lobe measures 4.5 cm x 1.6 cm x 1.7 cm. Isthmus thickness is2.6 mm. Thyroid Size: Normal Background Echotexture: Normal Thyroid Nodules: There is an 8 mm x 5 mm x 4 mm cystic nodule in the superior pole of the right lobe. There is also evidence of an 8 mm x 7 mm x 4 mm hypoechoic solid nodule in the inferior pole. This is unchanged. 7 mm x 6 mm x 2 mm hypoechoic nodule in the superior pole of the left lobe. There is also evidence of a 1 cm x 0.6 cm x 0.4 cm solid nodule in the right side of the isthmus. Incidental note is made of a 1.4 cm x 0.6 cm x 0.4 cm benign-appearing lymph node in the left side of the neck. US/Thyroid IMPRESSION: Stable examination. Reading Location: [id number]
== END | disposition home or self-care (01) ==
PROVIDERS: PCP Nurse Practitioner Family; Referring Provider Nurse Practitioner Family; Visit Provider Nurse Practitioner Family
DX: E04.1 Nontoxic single thyroid nodule (principal)
CPT/HCPCS: 76536; 76830

== ENCOUNTER → 2024-04-25 | Outpatient (CLI) | payer MEDICAID, SELFPAY ==
[2024-04-25 17:05] LABS: Absolute Lymphocyte Count 2.24 X10^3/uL (0.83-4.51); Absolute Neutrophil Count 4.7 X10^3/uL (2.0-7.7); Basophil# 0.05 X10^3/uL; Basophil% 0.7 % (0-1); Eosinophil# 0.14 X10^3/uL; Eosinophils% 1.9 % (0-5); Hematocrit 44.2 % (37-47); Hemoglobin 14.9 g/dL (12.0-15.0); Lymphocyte # 2.24 X10^3/ul (0.83-4.51); Lymphocyte % 30.1 % (19-41); Mean Corp Hgb Conc 33.7 g/dL (32-36); Mean Corpuscular Hgb 30.8 pg (27.0-32.0); Mean Corpuscular Volume 91.3 fL (81-99); Mean Platelet Vol. 11.4 fl (6.2-12.0); NRBC Flagged by Analyzer 0 % (0-5); Neutrophil # 4.69 X10^3/uL (2.7-7.7); Neutrophil % 63.2 % (47-70); Platelet Count 239 K/mm3 (150-450); RBC Distribution Width CV 12.7 % (11.6-14.6); RBC Distribution Width SD 42.1 fl (35.1-43.9); Red Blood Count 4.84 M/mm3 (4.2-5.4); White Blood Count 7.4 K/mm3 (4.4-11.0)
[2024-04-25 18:51] LABS: ALB/GLOB Ratio 1.3 RATIO (0.9-2.4); AST(SGOT) 21 U/L (<=31); Alanine Aminotransfer ALT/SGPT 18 U/L (<=34); Albumin, Serum 4.1 g/dL (3.4-4.8); Alkaline Phosphatase 76 U/L (35-104); Anion Gap 14 (5-15); BUN 21 mg/dL (4-19); BUN/Creat Ratio 28.5 RATIO (10-20); Calcium,Total 9.5 mg/dL (7.6-11.0); Carbon Dioxide 21.6 mmol/L (21.0-32.0); Chloride 102 mmol/L (98-108); Cholesterol 194 mg/dL (<=200); Creatinine, Serum 0.74 mg/dL (0.70-1.20); EST Glomerular Filtration Rate 92 (>60); Globulin 3.3 g/dL (2.2-4.2); Glucose 141 mg/dL (70-99); High Density Lipoprotein 44 mg/dL; Low Density Lipoprotein Calc. 129 mg/dL; Potassium 3.8 mmol/L (3.3-5.1); Protein, Total 7.4 g/dL (5.9-8.4); Sodium Level 137 mmol/L (133-145); Total Bilirubin 0.58 mg/dL (0.00-1.30); Triglycerides 103 mg/dL; Very Low Density Lipoprotein 21 mg/dL (5-40); cholesterol:hdl ratio screen 4.41
[2024-04-25 18:53] LABS: Vitamin B12 413 pg/mL (180-914); Vitamin D,25 Hydroxy 16.8 ng/mL (30-100)
== END | disposition home or self-care (01) ==
LOC: VSLAB 13:47
PROVIDERS: PCP Nurse Practitioner Family; Visit Provider Nurse Practitioner Family
DX: E11.9 Type 2 diabetes mellitus without complications (principal); E56.9 Vitamin deficiency, unspecified
CPT/HCPCS: 36415; 80053; 80061; 82306; 82607; 85025

== ENCOUNTER → 2024-11-21 | Outpatient (CLI) | payer MEDICAID, SELFPAY ==
[2024-11-21 17:20] LABS: Hematocrit 45.7 % (37-47); Hemoglobin 15.6 g/dL (12.0-15.0); Immature Granulocytes Count 0.020 X10^3/uL (0.0-0.0); Mean Corp Hgb Conc 34.1 g/dL (32-36); Mean Corpuscular Volume 90.3 fL (81-99); Mean Platelet Vol. 12.0 fl (6.2-12.0); NRBC Flagged by Analyzer 0 % (0-5); Platelet Count 226 K/mm3 (150-450); RBC Distribution Width CV 13.2 % (11.6-14.6); RBC Distribution Width SD 42.9 fl (35.1-43.9); Red Blood Count 5.06 M/mm3 (4.2-5.4); White Blood Count 8.6 K/mm3 (4.4-11.0)
[2024-11-21 17:47] LABS: Microalbumin,Random Urine 23.4 mg/L (<20 mg/L)
[2024-11-21 18:12] LABS: AST(SGOT) 22 U/L (<=31); Alanine Aminotransfer ALT/SGPT 20 U/L (<=34); Albumin, Serum 4.2 g/dL (3.4-4.8); Alkaline Phosphatase 78 U/L (35-104); Anion Gap 13 (5-15); BUN 27 mg/dL (4-19); BUN/Creat Ratio 34.5 RATIO (10-20); Calcium,Total 9.8 mg/dL (7.6-11.0); Carbon Dioxide 22.7 mmol/L (21.0-32.0); Chloride 101 mmol/L (98-108); Globulin 3.4 g/dL (2.2-4.2); Glucose 121 mg/dL (70-99); Potassium 4.1 mmol/L (3.3-5.1); Vitamin B12 454 pg/mL (180-914); Vitamin D,25 Hydroxy 36.5 ng/mL (30-100)
[2024-11-21 18:27] LABS: Cholesterol 194 mg/dL (<=200); Low Density Lipoprotein Calc. 127 mg/dL; Triglycerides 98 mg/dL; Very Low Density Lipoprotein 20 mg/dL (5-40); cholesterol:hdl ratio screen 4.13
== END | disposition home or self-care (01) ==
LOC: VSLAB 14:18
PROVIDERS: PCP Nurse Practitioner Family; Visit Provider Nurse Practitioner Family
DX: E11.9 Type 2 diabetes mellitus without complications (principal); E56.9 Vitamin deficiency, unspecified
CPT/HCPCS: 36415; 80053; 80061; 82043; 82306; 82607; 84443; 85025

== ENCOUNTER → 2024-12-26 | Outpatient (CLI) | payer MEDICAID, SELFPAY ==
--- NOTE | 2024-12-26 15:29 | BI_ITS ---
EXAM: SCRN MAMM (CAD)W/MAGDALENA BILAT DATE: 12/26/2024 CLINICAL HISTORY: F, Age 64 y/o , SCREENING No family history. TECHNIQUE: Procedure Code: [id number] Modality: MG Procedure: SCRN MAMM (CAD)W/MAGDALENA BILAT COMPARISON: Prior exam(s) dated December 26, 2023.. FINDINGS: TISSUE DENSITY: The breasts are almost entirely fatty. Bilateral Breast Mammographic Findings: No significant masses, calcifications or other abnormalities are identified. No suspicious masses, areas of developing architectural distortion, or suspicious calcifications. There has been no significant interval change. BI/SCRN MAMM (CAD)W/MAGDALENA BILAT IMPRESSION: Stable bilateral screening mammogram. OVERALL FINAL ASSESSMENT BI-RADS 1: NEGATIVE. RECOMMENDATION: Routine annual follow-up in 1 Year Additional Recommendation none A letter with findings and recommendations will be mailed to the patient. Reading Location: [place] [address]
== END | disposition home or self-care (01) ==
LOC: OPBI 15:27
PROVIDERS: PCP Nurse Practitioner Family; Referring Provider Nurse Practitioner Family; Visit Provider Nurse Practitioner Family
DX: Z12.31 Encounter for screening mammogram for malignant neoplasm of breast (principal)
CPT/HCPCS: 77063; 77067